=== PATIENT | male | born 1995 | race Caucasian/White ===

== ENCOUNTER 2025-01-25 16:47 | Emergency (ER) | payer SELFPAY ==
--- NOTE | 2025-01-25 16:54 | ED_ITS ---
<Statement entered by Karen Lomeli DO - 01/26/25 21:18> I was consulted by the HANNA, and we discussed the complexity of problems being addressed. I approve the treatment and management plan for this patient's care in the emergency department, thus performing a substantial portion of the medical decision making. Karen Lomeli DO Discharge Plan Disposition Patient Disposition: Left Against Medical Advice Condition: Fair Referrals Follow up/Referrals: Provider,Referral, MD [Primary Care Provider, Medical] - See instructions Clinical Impressions Clinical Impression: Cannabinoid hyperemesis syndrome Print Language Print Language: [place] Discharge ED Provider: Karen Lomeli General Adult HPI General Chief complaint: Dizziness Stated complaint: dizziness,nausea Time Seen by Provider: 01/25/25 16:50 Mode of Arrival: Ambulatory Source of Information: Patient Limitations: No Limitations History of Present Illness HPI narrative: 30-year-old male presents to the emergency with nausea, lightheadedness, diaphoresis, and dry heaves, that started around 2 hours ago, when the patient was going to use the bathroom , patient [place] any fever chills chest pain shortness of breath denies overt abdominal pain, denies constipation diarrhea melena hematochezia hematemesis, hemoptysis, no urinary type symptomatology, patient is current everyday smoker (vapes), notes occasional alcohol use, denies any other illicit drug use with the exception of marijuana, last use was several days ago, initial triage vitals are unremarkable. Patient has otherwise no other real relevant past medical history takes no other medications at home. Please note that above description of symptoms, in this electronic medical record under categorization of recalled from ER triage doctor by RN are reflective of an initial nursing assessment, however, is not reflective of my full history and physical exam that was personally taken and clarified. Consequentially, this preceding description of symptoms, which may include the patient's categorized chief complaint in the EMR, do not reflect my personal clinical impression, and the ultimate description of history of present illness and patient stated complaints should be deferred to this section of the note. Unless stated otherwise or congruent with this section of the note, additional signs, symptoms, or incongruence should be interpreted as inaccurate with my clinical impression. Onset (ago): hour(s) Related Data Allergies Allergy/AdvReac Type Severity Reaction Status Date / Time No Known Allergies Allergy Verified 01/25/25 17:30 [facility] Disclaimer: The information contained in this section may have been updated after the patient was seen, as this information can be updated by other users. Social History (Updated 01/25/25 @ 18:47 by MARGARET Miles) Smoking Status: Current every day smoker alcohol intake: current current occupational status: other Travel in the last 8 weeks?: None Have you lived/traveled outside US in past 30 days?: No Contact w/someone who lives/traveled outside US past 30 days?: No Exposure to someone with infectious disease in past 14 days?: No Do you have a fever (greater than 100.4 F or 38 C)?: No Have you tested positive for COVID-19?: No Exposed to someone with COVID-19 in past 14 days?: No Do you have a sore throat?: No Do you have a cough?: No Do you have any weakness?: No Do you have any diarrhea?: No Are you experiencing any unusual bleeding?: No Do you have any muscle aches/pain?: No Do you have any abdominal pain?: No Are you experiencing loss of taste or smell?: No ROS Obtained: Yes All systems reviewed & no additional complaints except as documented Physical Exam General General appearance: alert and in no apparent distress Comment: Pale diaphoretic appearing male with active dry heaves Head Head exam: atraumatic and normocephalic Eye Eye exam: Present PERRL and EOMI ENT ENT exam: Present mucous membranes moist Neck Neck exam: Present normal inspection Chest Chest inspection: Present normal inspection and symmetric chest wall rise Respiratory Respiratory exam: Present normal lung sounds bilaterally; Absent respiratory distress, wheezes or stridor Cardiovascular Cardiovascular exam: Present regular rate and normal rhythm Abdominal Exam Abdominal exam: Present soft; Absent tenderness, guarding, rebound or rigidity Extremities Exam Extremities exam: Present normal inspection Neurological Exam Neurological exam: Present alert and oriented X3 Psychiatric Psychiatric exam: Present normal affect Skin Skin exam: Present warm and dry Medical Decision Making Medical Records Medical records reviewed: Yes I reviewed the patient's medical records. Screening: Per USPSTF and CDC recommendations, given the prevalence of disease in our region, it is our hospital?s policy to screen for HIV and viral Hepatitis for all patients aged 18 and over and those with ongoing risk factors. Otilio Inquiry Pt receiving controlled substance: No Otilio was queried for this patient: No Vital Signs: 01/25/25 17:18 01/25/25 18:00 Temperature 97.6 F Temperature Source Oral Pulse Rate 81 Pulse Rate [Right Radial] 79 Respiratory Rate 15 15 Blood Pressure 132/101 H Blood Pressure [Right Arm] 127/79 Blood Pressure Mean 109 Blood Pressure Mean [Right Arm] 95 Blood Pressure Source [Right Arm] Automatic Cuff Blood Pressure Position [Right Arm] Sitting 02 Sat by Pulse Oximetry 100 94 L Oxygen Delivery Method Room Air Lab Data Lab results reviewed: Yes I reviewed the patient's lab results. Lab Results 01/25/25 17:06: Urine Color Yellow, Urine Appearance Clear, Urine pH 6.0, Ur Specific [place] 1.025, Urine Protein Trace, Urine Glucose (UA) Trace, Urine Ketones 3+, Urine Blood Negative, Urine Nitrate Negative, Urine Bilirubin Negative, Urine Urobilinogen 1.0, Ur Leukocyte Esterase Negative, Urine RBC Occasional, Urine WBC 3-5, Ur Squamous Epith Cells 5-10, Urine Bacteria 2+, Urine Mucus 1+ 01/25/25 17:08: Urine Opiates Screen Negative, Urine Methadone Screen Negative, Ur Barbituates Screen Negative, Ur Phencyclidine Scrn Negative, Ur Amphetamines Screen Negative, U Benzodiazepines Scrn Negative, Urine Cocaine Screen Negative, U Marijuana (THC) Screen Positive H 01/25/25 17:16: WBC 9.9, RBC 4.74, Hgb 14.0 L, Hct 41.7 L, MCV 88.0, MCH 29.5, MCHC 33.6, RDW 12.3, Plt Count 219, MPV 11.6 H, Neut % (Auto) 82.5 H, Lymph % (Auto) 12.4, [place] % (Auto) 4.2, Eos % (Auto) 0.2, Baso % (Auto) 0.3, Neut # (Auto) 8.2 H, Lymph # (Auto) 1.2, [place] # (Auto) 0.4, Eos # (Auto) 0.0, Baso # (Auto) 0.0, Sodium 137, Potassium 4.1, Chloride 98, Carbon Dioxide 19 L, Anion Gap 24.1 H, BUN 15, Creatinine 0.90, Estimated Creat Clear 101, Estimated GFR 100, Est GFR ( Amer) 121, Glucose 158 H, Calcium 10.0, Magnesium 1.6, T otal Bilirubin 2.9 H, AST 28, ALT 26, Alkaline Phosphatase 63, Troponin I < 0.01, NT-Pro-B Natriuret Pep < 20.0, Total Protein 8.4 H, Albumin 5.3 H, Globulin 3.1, Albumin/Globulin Ratio 1.7, Lipase 54, Plasma/Serum Alcohol < 10 01/25/25 17:16 01/25/25 17:16 Orders (Tests/Meds): ED MEDICATIONS Discontinued Medications Generic Name Dose Route Start Last Admin Trade Name Freq PRN Reason Stop Dose Admin Droperidol 1.25 mg 01/25/25 17:33 01/25/25 17:49 Droperidol 5mg/2ml Vial IV 01/25/25 17:34 1.25 mg ONCE ONE Administration Lactated Ringer's 1,000 mls @ 999 mls/hr 01/25/25 16:59 01/25/25 17:31 Lactated Ringer's 1000 Ml Bag IV 01/25/25 17:59 999 mls/hr .Q1H1M ONE Administration ORDERS Category Date Time Status Complete Blood Count Auto Diff Stat Lab 01/25/25 17:16 Completed Comprehensive Metabolic Panel Stat Lab 01/25/25 17:16 Completed Drug Screen,Urine Stat Lab 01/25/25 17:08 Completed Ethanol [Ethyl Alcohol] Stat Lab 01/25/25 17:16 Completed Lipase Stat Lab 01/25/25 17:16 Completed Magnesium Stat Lab 01/25/25 17:16 Completed NT Pro Brain Natriuretic Pep. Stat Lab 01/25/25 17:16 Completed Troponin I Q3H Lab 01/25/25 20:00 Ordered Troponin I Q3H Lab 01/25/25 23:00 Ordered Troponin I Stat Lab 01/25/25 17:16 Completed Urinalysis and Microscopic Stat Lab 01/25/25 17:06 Completed Urine Culture Stat Micro 01/25/25 17:06 Received EKG Request [ECG Request] Stat Y 01/25/25 16:58 Ordered Medical Decision Narrative: 30-year-old male presents the emergency department with nausea lightheadedness, for 2 hours, differential diagnose include but not limited to, cannabinoid hyperemesis syndrome, other toxicity, cardiac arrhythmia, electrolyte disturbance, gastritis, ileitis, pancreatitis, colitis among others. I discussed this patient case with the attending physician Obtain EKG, CBC CMP UDS, ethyl alcohol level, lipase level magnesium level proBNP troponin urinalysis and will give 1 L LR IV. UA is notable for 3+ ketonuria, negative nitrites negative leukocyte esterase. Will give 1.25 IV droperidol for nausea and vomiting UDS is positive for THC otherwise negative CBC unremarkable CMP is notable for a elevated anion gap at 24.1, hyperbilirubinemia 2.9, troponin within normal limits, lipase in normal limits, ethyl alcohol level within normal limits. Reexamination of the patient's at approximately 6:40 PM, patient states his nausea and vomiting has improved, patient states that he would like to leave, patient's full workup has not yet resulted, and would like to watch patient after droperidol administration approximately 2 hours, patient received droperidol at 1750, still in the 2-hour manolo, patient is GCS of 15, patient's family member/significant other is at the bedside, both voiced understanding and agreement with the current plan to leave AGAINST MEDICAL ADVICE after full testing/observation was completed. Patient voiced understanding and acknowledged all risk of leaving AGAINST MEDICAL ADVICE until medical workup/observation period was completed after medication. Critical Care Critical Care Time Critical Care Time: No
--- OUTSIDE RECORDS SUMMARY | 2025-01-25 16:59 | XMS_ITS | Clinical Summary ---
Author Organization [facility] Address [address] [place] [address] Care Team Providers Care Motorcycle Riding Instructor Name Role Phone Brittni Cuevas M.D. Primary Care Provider [phone] Source Comments [facility] is fully rolled out with thefollowing exceptions:[facility] Medications methylphenidate (CONCERTA) 54 MG extended release tablet Take 1 Tab by mouth. Once daily Active cloNIDine (CATAPRES) 0.1 MG tablet Take 1 Tab by mouth. Once daily at bedtime Active atomoxetine (STRATTERA) 40 MG capsule Take by mouth. 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 Vitreous hemorrhage 09/25/2010 Family History Medical History Relation Name Comments Amblyopia Neg Hx Blindness Neg Hx Cataracts/Danilo.Childhood Neg Hx Eye Muscle Surgery Neg Hx Glaucoma/Danilo.Childhood Neg Hx Nystagmus Neg Hx Ptosis Neg Hx Retinal Degeneration Neg Hx Strabismus Neg Hx Social History Tobacco Use Types Packs/Day Years Used Date Smoking Tobacco: Never Assessed Sex and Gender Information Value Date Recorded Sex Assigned at Not on file Legal Sex Male 5:35 AM EST Gender Identity Not on file Sexual Orientation Not on file Plan of Treatment Health Maintenance Due Date Last Done Comments MMR IMMUNIZATION (1 of 1 - S tandard series) 01/08/1997 DTAP/Tdap/Td IMMUNIZATION (1 - Tdap) 01/08/2003 VARICELLA IMMUNIZATION (1 of 2 - 13+ 2-dose series) 01/08/2009 HEPATITIS B IMMUNIZATION (1 of 3 - 19+ 3-dose series) 01/08/2015 HPV IMMUNIZATION (1 - 3-dose SCDM series) 01/08/2023 COVID-19 Vaccine (1 - 2023-2 5 season) 2024 AMB SEASONAL FLU VACCINE (#1) 04/03/2025 HIB IMMUNIZATION Aged Out No longer e ligible based on patient's age to complete this topic IPV IMMUNIZATION Aged Out No longer e ligible based on patient's age to complete this topic MCV4 IMMUNIZATION Aged Out No longer eligible based on patient's age to complete this topic MENINGOCOCCAL B VACCINE Aged Out No l onger eligible based on patient's age to complete this topic PNEUMOCOCCAL IMMUNIZATION Aged Out No longer eligible based on patient's age to complete this topic Respiratory Syncytial Virus (RSV) <20mo Aged Out No longer eligible b ased on patient's age to complete this topic Insurance Care Teams Motorcycle Riding Instructor Relationship Specialty Start Date End Date Brittni Cuevas M.D. PCP - General External Medicine 09/25/10
--- OUTSIDE RECORDS SUMMARY | 2025-01-25 16:59 | XMS_ITS | Clinical Summary ---
Author Organization [facility] [place] [address] Phone Care Team Providers Care Bioinformatics Computer Scientist Name Role Phone Unavailable Primary Care Provider Unavailabl e Allergies No known active allergies Medications No known medications Active Problems Problem Noted Date Diagnosed Date Irritability and anger 12/20/2011 Behavioral disorder 12/20/2011 ADHD (attention deficit hyperactivity disorder) 12/20/2011 Medical History Medical History Date Comments ADHD (attention deficit hyperactivity disorder) Family History Medical History Relation Name Comments Diabetes Brother 1 Diabetes Father Heart Disease Father High Blood Pressure Father Relation Name Status Comments Brother 1 Alive Brother 2 Cornelius Alive Father Maternal Grandfather Maternal Grandmother Alive Mother Alive Paternal Grandfather Paternal Grandmother Social History Tobacco Use Types Packs/Day Years Used Date Smoking Tobacco: Never Smokeless Tobacco: Never Alcohol Use Standard Drinks/Week Comments No 0 (1 standard drink = 0.6 oz pur e alcohol) Sexually Active Control Partners Comments Never Sex and Gender Information Value Date Recorded Sex Assigned at Not on file Legal Sex Male 4:30 AM EDT Gender Identity Not on file Sexual Orientation Not on file Obstetrics History Last Filed Vital Signs Vital Sign Reading Time Taken Comments Blood Pressure 112/74 12/20/2011 1:06 PM EDT Pulse 69 12/20/2011 1:06 PM EDT Temperature 36.9 C (98.5 F) 12/20/2011 1:06 PM EDT Respiratory Rate - - Oxygen Saturation 100% 12/20/2011 1:06 PM EDT Inhaled Oxygen Concentration - - Weight 59.1 kg (130 lb 6.4 oz) 12/20/2011 1:06 P M EDT Height 163.2 cm (5' 4.25 ) 12/20/2011 1:06 PM ED T Body Mass Index 22.21 12/20/2011 1:06 PM EDT Plan of Treatment Health Maintenance Due Date Last Done Comments Annual Wellness Exam 01/08/1999 DTaP/TDaP/Td (1 - Tdap) 01/08/2015 Hepatitis B Vaccine (1 of 3 - 19+ 3-dose series) 01/08/2015 COVID-19 Vaccine (2023-2 5 season) 2024 Influenza Vaccine (#1) 2025 Meningococcal B Vaccine Aged Out No l onger eligible based on patient's age to complete this topic Pneumococcal Vaccine 0-49 Aged Out No longer eligible based on patient's age to complete this topic
[2025-01-25 17:16] LABS: Microscopic, Urine URINE MICROSCOPIC (MICROSCOPIC)
--- NOTE | 2025-01-25 17:17 | ECG_ITS ---
APPROVED REPORT Exam: Resting ECG HR:62 bpm ECG Measurements Heart Rate 62 AXES MS 139 P 57 QRSd 138 QRS 90 QT 406 T 80 QTc 411 Conclusion SINUS RHYTHM WITH OCCASIONAL SUPRAVENTRICULAR PREMATURE COMPLEXES INDETERMINATE AXIS RIGHT BUNDLE BRANCH BLOCK [120+ ms QRS DURATION, UPRIGHT V1, 40+ ms S IN I/aVL/V4/V5/V6] ABNORMAL ECG UNCONFIRMED REPORT Electronically signed by : PHILIP BISHOP, 01/25/2025 23:17:41
[2025-01-25 17:18] VITALS: BP 127/79; PULSE 79; RESP 15; TEMP 36.4; O2SAT 100; BMI 19.2
[2025-01-25 17:19] LABS: Bilirubin,Urine Negative (Negative); Color,Urine YELLOW (Yellow); Glucose,Urine (UA) TRACE (Negative); Ketones,Urine 3+ (Negative); Leukocyte Esterase,Urine Negative (Negative); PH,Urine 6.0 (5.0-8.5); Protein,Urine TRACE (Negative); Specific Gravity, Urine 1.025 (1.005-1.030); Urobilinogen,Urine 1.0 EU/dl (0.2)
[2025-01-25] MEDS: LACTATED RINGERS 1000ML 1,000 ML 999 ML IV (17:31)
[2025-01-25 17:36] LABS: Amphetamine/Metha Screen,Urine Negative ng/ml (<1000); Barbiturates Screen,Urine Negative ng/ml (<200)
[2025-01-25 17:37] LABS: Benzodiazepines Screen,Urine Negative ng/ml (<200)
[2025-01-25 17:39] LABS: Methadone Screen,Urine Negative ng/ml (<300)
[2025-01-25 17:40] LABS: Opiate Screen,Urine Negative ng/ml (<300); Phencyclidine Screen,Urine Negative ng/ml (<25)
[2025-01-25] MEDS: droPERidol 5MG/2ML VIAL 1.25 MG IV (17:49)
[2025-01-25 17:56] LABS: Alanine Aminotransferase 26 U/L (12-78); Albumin Level 5.3 g/dl (3.5-5.0); Albumin/Globulin Ratio 1.7 (1.1-1.8); Alkaline Phosphatase 63 U/L (38-126); Anion Gap 24.1 mEq/L (5-15); Aspartate Amino Transferase 28 U/L (17-59); Bilirubin,Total 2.9 mg/dl (0.2-1.3); Blood Urea Nitrogen 15 mg/dl (9-20); Calcium 10.0 mg/dl (8.4-10.2); Carbon Dioxide 19 mmol/L (22.0-30.0); Chloride 98 mmol/L (98-107); Creatinine Clearance Estimated 101 mL/min (50-200); Creatinine,Serum 0.90 mg/dl (0.66-1.25); Estimated Glomerular Filt Rate 100 ml/min (>60); GFR (African American) 121 ML/MIN (>60); Globulin 3.1 g/dL (1.3-3.2); Glucose 158 mg/dl (74-100); Hematocrit 41.7 % (42.0-52.0); Hemoglobin 14.0 g/dL (14.1-18.0); Immature Granulocytes % 0.4 %; Lipase 54 U/L (23-300); Magnesium 1.6 mg/dl (1.6-2.3); Mean Corpuscular HGB Conc 33.6 g/dL (31.8-35.4); Mean Corpuscular Hemoglobin 29.5 pg (27.0-31.2); Mean Corpuscular Volume 88.0 fl (80-94); Nucleated Red Blood Cells % 0 %; Platelet Count 219 K/mm3 (142-424); Potassium 4.1 mmoL/L (3.5-5.1); Red Blood Count 4.74 M/mm3 (4.60-6.20); Red Cell Distribution Width-SD 39.9 fL; Sodium 137 mmol/L (136-145); Total Protein,Serum 8.4 g/dl (6.3-8.2); White Blood Count 9.9 K/mm3 (4.8-10.8)
[2025-01-25 18:00] VITALS: BP 132/101; PULSE 81; RESP 15; O2SAT 94
[2025-01-25 18:00] LABS: Bacteria,Urine 2+ /lpf; Mucus,Urine 1+ /lpf; RBC,Urine Occasional #/hpf (0-3)
[2025-01-25 18:08] LABS: NT Pro Brain Natriuretic Pep. < 20.0 pg/mL (0-125)
[2025-01-25 18:13] LABS: Troponin I < 0.01 ng/ml (0.00-0.034)
[2025-01-25 18:45] VITALS: BP 142/90; PULSE 88; RESP 20; TEMP 36.6; O2SAT 98
--- NOTE | 2025-01-25 18:45 | PC.NURSE ---
pt refused to stay in ER for further, treatment, testing, and cardiac monitoring post droperidol. States I feeel so much better. I am not staying, I don't care what yall say. He is a&ox4. His friend is with him and driving. Educated to return to ER with any worsening symptoms or concerns. Ventura ROBLES and I both s/w pt regarding staying or leaving AMA. Pt choose to leave AMA and signed form.
== END 2025-01-25 18:46 | disposition left against medical advice (07) ==
PROVIDERS: Physician Assistant; Emergency Provider Student in an Organized Health Care Education/Training Program
DX: R42 Dizziness and giddiness (principal); R11.2 Nausea with vomiting, unspecified
CPT/HCPCS: 80053; 80307; 80320; 81001; 83690; 83735; 83880; 84484; 85025; 87086; 93005; 96361; 96374; 99284; J1790; J7120

== ENCOUNTER 2025-03-17 12:49 | Inpatient (IN) | payer SELFPAY ==
--- OUTSIDE RECORDS SUMMARY | 2025-01-27 16:17 | XMS_ITS | Encounter Summary ---
Author Organization [place] [address] Care Team Providers Care Deli Manager Name Role Phone Nonstaff, Referring Primary Care Provider Lucho tatum Reason for Visit * Reason Comments Emesis 3 days, think Im de hydrated, can't hold anything down Small amount of diarrhea Encounter Details Date Type Department Care Team (Late st Contact Info) Description 01/27/2025 4:17 PM EDT - 01/27/2025 8:25 PM EDT Emergency [facility] [address] [place] [address] Renetta Thornton MD [address] [place], [place] [id number] Nausea and vomiting, unspecified vomiting type (Primary Dx) Discharge Disposition: Home or Self Care Social History Tobacco Use Types Packs/Day Years Used Date Smoking Tobacco: Never Smokeless Tobacco: Never Alcohol Use Standard Drinks/Week Comments Yes 0 (1 standard drink = 0.6 oz pur e alcohol) social Sexually Active Control Partners Comments Never Sex and Gender Information Value Date Recorded Sex Assigned at Not on file Legal Sex Male 4:30 AM EDT Gender Identity Not on file Sexual Orientation Not on file documented as of this encounter Last Filed Vital Signs Vital Sign Reading Time Taken Comments Blood Pressure 150/95 01/27/2025 8:18 PM EDT Pulse 105 01/27/2025 8:18 PM EDT Temperature 37.4 C (99.3 F) 01/27/2025 5:20 PM EDT Respiratory Rate 18 01/27/2025 8:18 PM EDT Oxygen Saturation 96% 01/27/2025 8:18 PM EDT Inhaled Oxygen Concentration - - Weight 59 kg (130 lb) 01/27/2025 4:05 PM EDT Height 175.3 cm (5' 9 ) 01/27/2025 4:05 PM EDT Body Mass Index 19.2 01/27/2025 4:05 PM EDT documented in this encounter Functional Status * Suicide Severity Rating Answer Date of Assessment Author No Risk 01/27/2025 4:06 PM EDT Korina Mohr RN * [place] Suicide Severity Rating Scale (Q shift for moderate and high) Question Answer Date of Assessment Author 1. In the past month, have you wished you were or wished you could go to sleep and not wake up? 0 01/27/2025 4:06 PM EDT Kandace Lorenzo RN 2. In the past month, have you actually had any thoughts of killing yourself? (If no, skip to question 6) 0 01/27/2025 4:06 PM EDT Kandace Lorenzo RN 6. Have you ever done anything, started to do anything, or prepared to do anything to end your life? 0 01/27/2025 4:06 PM EDT Korina Stevens RN documented as of this encounter Discharge Instructions * Discharge Instructions* Nestor Luz, SALVADOR - 01/27/2025 7:44 PM EDT As discussed, the most important thing is for you to stay well hydrated while your body is recovering from this illness. Once you have been able to tolerate a clear liquid diet for 12-24 hours without vomiting, you may progress to a soft, bland diet. Drink fluids high in electrolytes like Pedialyte or Gatorade. Once you have been able to tolerate a soft, bland diet without vomiting or diarrhea for 12-24 hours, you may progress to a normal diet. You may take zofran as needed for nausea, but use caution, as this medication can cause sedation, and you should not drink alcohol, drive, or operate machinery while taking this medication. Please call your doctor's office in the morning to discuss your ER visit, and arrange a followup appointment. Call your doctor, or return to the emergency department, if you have worsening symptoms, particularly if you develop severe abdominal pain, persistent vomiting with inability to keep down fluids or medications, fever greater than 101??F which did not improve with Tylenol, or other concerning symptoms. documented in this encounter Medications at Time of Discharge ondansetron (ZOFRAN-ODT) 4 mg Oral Tablet, Rapid Dissolve Dissolve 1 Tablet by mouth every 6 hours as needed for Nausea for up to 30 days. 12 Tablet 01/27/2025 02/26/2025 documented as of this encounter Ordered Prescriptions Prescription Sig Dispense Quantity Refills Last Filled Start Date End Date ondansetron (ZOFRAN-ODT) 4 mg Oral Tablet, Rapid Dissolve Dissolve 1 Tablet by mouth every 6 hours as needed for Nausea for up to 30 days. 12 Tablet 01/27/2025 documented in this encounter Discharge Disposition Disposition Code Departure Means Destination Comment s Home or Self Skilled Nursing documented in this encounter ED Notes * Nestor Luz APRN - 01/27/2025 4:03 PM EDT CHIEF COMPLAINT Chief Complaint Patient presents with Emesis 3 days, think Im dehydrated, can't hold anything down Small amount of diarrhea Attending physician Dr Thornton, Renetta Rosas MD ED COURSE & MEDICAL DECISION MAKING Pedro Davis is a 30 y.o. male with a PMHx listed below presenting with nausea and vomiting. # Nausea and vomiting (Acute) - Patient reports 3 to 4-day history of symptoms on exam is tachycardic but otherwise afebrile hemodynamically stable with soft benign abdomen without obvious peritoneal findings. Intractable vomiting likely in the setting of reported marijuana use. He does have a nonspecific leukocytosis favored to be stress for response with no other offered infectious symptomology. Notable metabolic acidosis and anion gap acidosis which cleared well with IV fluids on repeat BMP. Lipase within normal limits. No significant hepatobiliary abnormality. No significant electrolyte derangement. No evidence of renal impairment. Symptoms well-controlled in the emergency department is tolerating p.o. stable for discharge with return precautions discussed for escalating symptoms. - History obtained by patient as well as chart review. - Pertinent Labs & Imaging studies reviewed. (See chart for ordered tests and details). ED COURSE - Consultants: None - Social Determinants of Health: Noncontributory - Care of patient discussed with nursing team and nursing documentation reviewed. Medications Administered Medications sodium chloride 0.9% syringe 5-10 mL (has no administration in time range) sodium chloride 0.9% IV line flush 50 mL (has no administration in time range) sodium chloride 0.9 % 1,000 mL IV bolus ( Intravenous Stopped 01/27/25 1749) haloperidol lactate (HALDOL) injection 5 mg (5 mg Intravenous Given 01/27/25 1640) sodium chloride 0.9 % 1,000 mL IV bolus ( Intravenous Stopped 01/27/25 1906) ondansetron (ZOFRAN-ODT) disintegrating tablet 8 mg (8 mg Oral Given 01/27/252014) Prescriptions Written ED Current Prescriptions Medication Dispense Auth. Provider ondansetron (ZOFRAN-ODT) 4 mg Oral Tablet, Rapid Dissolve 12 Tablet Nestor Luz, DATA PROCESSING OPERATOR Future Appointments No future appointments. FINAL IMPRESSION 1. Nausea and vomiting, unspecified vomiting type HPI Pedro Davis is a 30 y.o. male presenting with nausea and vomiting. Patient reports 3-day history of symptoms. Does report history of prior symptoms that he relates to his hyperemesis cannabis . He did smoke marijuana 3 to 4 days ago. Reports he initially tried a hot shower with some symptom improvement but states it only lasted for a very brief time. He has been trying [id number] antiem etics with little no improvement. He had 1 isolated episode of diarrhea but denies any recurrence of this. Reports mostly abdominal cramping with episodes of vomiting denies any pain at rest. Denies fevers or chills. Denies significant change in urinary output. Otherwise denies focal related complaints. REVIEW OF SYSTEMS A complete review of systems is negative except as noted in the HPI. PAST MEDICAL HISTORY Past Medical History: Diagnosis Date ADHD (attention deficit hyperactivity disorder) FAMILY HISTORY Family History Problem Relation Age of Onset Diabetes Father Heart Disease Father High Blood Pressure Father Diabetes Brother SOCIAL HISTORY Social History Socioeconomic History Marital status: Single Spouse name: None Number of children: None Years of education: None Highest education level: None Tobacco Use Smoking status: Never Smokeless tobacco: Never Vaping Use Vaping status: Every Day Substance and Sexual Activity Alcohol use: Yes Comment: social Drug use: Yes Types: Marijuana Comment: 4 or 5 days ago Sexual activity: Never SURGICAL HISTORY History reviewed. No pertinent surgical history. CURRENT MEDICATIONS No current facility-administered medications on file prior to encounter. No current outpatient medications on file prior to encounter. ALLERGIES No Known Allergies PHYSICAL EXAM VITAL SIGNS: ED Triage Vitals Temp -- Pulse 01/27/25 1605 114 Resp 01/27/25 1605 20 BP 01/27/25 1620 (!) 148/104 SpO2 01/27/25 1605 90 % Height 01/27/25 1605 5' 9 (1.753 m) Weight 01/27/25 1605 130 lb (59 kg) Constitutional: Appears nontoxic. No acute distress. HENT: Atraumatic. Normocephalic. Eyes: Conjunctiva normal. EOMI Neck: ROM normal, supple. Cardiovascular: Tachycardic rate and regular rhythm. Extremities appear warm and well perfused. Thorax & Lungs: Respiratory effort normal. Lungs CTAB Abdomen: Nondistended. Nontender. Musculoskeletal: No deformity or swelling. Moves all 4 extremities spontaneously with apparent equal strength. Skin: Warm and dry. Neurologic: Awake and alert. LABS/RADIOLOGY Reviewed (See Orders) Results for orders placed or performed during the hospital encounter of 01/27/25 CBC WITH DIFF Result Value Ref Range WBC 20.0 (H) 3.7 - 10.3 x10(3)/mcL RBC 5.40 4.60 - 6.10 x10(6)/mcL Hgb 16.4 13.7 - 17.5 g/dL Hct 46.5 40.0 - 51.0 % MCV 86.1 80.0 - 100.0 fL MCH 30.4 26.0 - 34.0 pg MCHC 35.3 30.7 - 35.5 g/dL RDW 12.0 <=14.9 % Platelet 291 155 - 369 x10(3)/mcL MPV 11.7 8.8 - 12.5 fL Neut Percent 92.8 % Imm Gran% 0.3 % Lymph Percent 3.1 % [place] Percent 3.7 % Eos Percent 0.0 % Baso Percent 0.1 % Neut # 18.6 (H) 1.6 - 6.1 x10(3)/mcL IMMGRAN# 0.1 0.0 - 0.1 x10(3)/mcL Lymph # 0.6 (L) 1.2 - 3.9 x10(3)/mcL Solano # 0.7 0.3 - 0.9 x10(3)/mcL Eos# 0.0 0.0 - 0.5 x10(3)/mcL Baso # 0.0 0.0 - 0.1 x10(3)/mcL COMPREHENSIVE METABOLIC PANEL Result Value Ref Range Sodium 137 136 - 145 mmol/L Potassium 3.7 3.5 - 5.0 mmol/L Chloride 92 (L) 98 - 107 mmol/L Total CO2 19 (L) 22 - 29 mmol/L Anion Gap 26 (H) 7 - 16 mmol/L Calcium 11.4 (H) 8.6 - 10.4 mg/dL Glucose Lvl 144 (H) 70 - 99 mg/dL BUN 25 (H) 6 - 20 mg/dL Creatinine 1.20 0.67 - 1.30 mg/dL Albumin 5.9 (H) 3.5 - 5.2 gm/dL Total Protein 9.3 (H) 6.4 - 8.3 gm/dL Bili Total 3.3 (H) 0.2 - 1.4 mg/dL ALT 19 <=41 U/L AST 19 <=40 U/L Alk Phos 77 40 - 129 U/L eGFR (CKD-EPIcr 2020) 84 >=60 mL/min/1.73 m2 LIPASE LEVEL Result Value Ref Range Lipase Lvl 14 13 - 60 U/L BASIC METABOLIC PANEL Result Value Ref Range Sodium 138 136 - 145 mmol/L Potassium 4.0 3.5 - 5.0 mmol/L Chloride 99 98 - 107 mmol/L Total CO2 22 22 - 29 mmol/L Anion Gap 17 (H) 7 - 16 mmol/L Calcium 8.9 8.6 - 10.4 mg/dL Glucose Lvl 93 70 - 99 mg/dL BUN 23 (H) 6 - 20 mg/dL Creatinine 1.11 0.67 - 1.30 mg/dL eGFR (CKD-EPIcr 2020) 92 >=60 mL/min/1.73 m2 No orders to display Abnormal Labs Reviewed CBC WITH DIFF - Abnormal; Notable for the following components: Result Value WBC 20.0 (*) Neut # 18.6 (*) Lymph # 0.6 (*) All other components within normal limits COMPREHENSIVE METABOLIC PANEL - Abnormal; Notable for the following components: Chloride 92 (*) Total CO2 19 (*) Anion Gap 26 (*) Calcium 11.4 (*) Glucose Lvl 144 (*) BUN 25 (*) Albumin 5.9 (*) Total Protein 9.3 (*) Bili Total 3.3 (*) All other components within normal limits BASIC METABOLIC PANEL - Abnormal; Notable for the following components: Anion Gap 17 (*) BUN 23 (*) All other components within normal limits EKG PROCEDURES/ULTRASOUND DISPOSITION Risks, benefits, and alternatives were discussed. At this time the patient has been deemed safe fordischarge. My customary discharge instructions including strict return precautions for worsening ornew symptoms have been communicated. CRITICAL CARE Condition at Discharge/Transfer from Department/Shift Turnover: Improved In cases where narcotics are prescribed, AFUA report was obtained, reviewed, and made part of record. After examining available information, and risks of prescribing or dispensing controlled substances was explained to the patient (including non-treatment or other treatment), it is considered medically appropriate to administer narcotics as prescribed. This note was dictated using voice-recognition software, which occasionally construes inadvertent typographic errors. Nestor Luz APRN 01/27/252026 Cosigned by Renetta Thornton MD at 01/27/2025 11:57 PM EDT Associated attestation - Renetta Thornton MD - 01/27/2025 11:57 PM EDT I have reviewed the chief complaint, history of the present illness, review of systems as well as the past medical, social, and family history sections for this patient. I participated in the care ofthis patient with the PA/GOVERNMENT CLERK. We discussed the management plan and testing results for this patient and I performed a substantiative portion of the medical decision making. No orders to display This chart was completed using voice recognition technology and may contain unintended errors documented in this encounter Plan of Treatment Not on file documented as of this encounter Procedures Procedure Name Priority Date/Time Associated Diagnosis Comments BASIC METABOLIC PANEL STAT 01/27/2025 6:59 PM EDT CBC WITH DIFF STAT 01/27/2025 4:41 PM EDT LIPASE LEVEL STAT 01/27/2025 4:41 PM EDT COMPREHENSIVE METABOLIC PANEL STAT 01/27/2025 4:41 PM EDT SALINE LOCK IV STAT 01/27/2025 4:24 PM EDT documented in this encounter Results * (ABNORMAL) BASIC METABOLIC PANEL (01/27/2025 6:59 PM EDT) Sodium 138 136 - 145 mmol/L 01/27/2025 7:36 PM EDT [facility] Potassium 4.0 3.5 - 5.0 mmol/L 01/27/2025 7:36 PM EDT [facility] Chloride 99 98 - 107 mmol/L 01/27/2025 7:36 PM EDT [facility] Total CO2 22 22 - 29 mmol/L 01/27/2025 7:36 PM EDT [facility] Anion Gap 17(H) 7 - 16 mmol/L 01/27/2025 7:36 PM EDT [facility] Calcium 8.9 8.6 - 10.4 mg/dL 01/27/2025 7:36 PM EDT [facility] Glucose Lvl 93 70 - 99 mg/dL 01/27/2025 7:36 PM EDT [facility] BUN 23(H) 6 - 20 mg/dL 01/27/2025 7:36 PM EDT [facility] Creatinine 1.11 0.67 - 1.30 mg/dL 01/27/2025 7:36 PM EDT [facility] eGFR (CKD-EPIcr 2020) 92 >=60 mL/min/1.7 3 m2 01/27/2025 7:36 PM EDT [facility] Comment:Estimated GFR was ca lculated using the CKD-EPIcr (2020) equation refit without race. The equation is recommended by the National Kidney Foundation - [place] [employer] of Nephrology Task Force. Blood VENOUS BLOOD / Unknown Venipuncture / Unknown 01/27/2025 6:59 PM EDT 01/27/2025 7:03 PM EDT Nestor Luz [facility] CHEMISTRY ORDERABLES Fin al Result Performing Organization Address [facility] de Phone Number [facility] [address] [place] [address] * LIPASE LEVEL (01/27/2025 4:41 PM EDT) Lipase Lvl 14 13 - 60 U/L 01/27/2025 5:09 PM EDT [facility] Blood VENOUS BLOOD / Unknown Venipuncture / Unknown 01/27/2025 4:41 PM EDT 01/27/2025 4:48 PM EDT Nestor Luz APRN CHEMISTRY ORDERABLES Fin al Result Performing Organization Address [facility] de Phone Number [facility] [address] [place] [address] * (ABNORMAL) COMPREHENSIVE METABOLIC PANEL (01/27/2025 4:41 PM EDT) Sodium 137 136 - 145 mmol/L 01/27/2025 5:17 PM EDT [facility] Potassium 3.7 3.5 - 5.0 mmol/L 01/27/2025 5:17 PM EDT [facility] Chloride 92(L) 98 - 107 mmol/L 01/27/2025 5:17 PM [facility] Total CO2 19(L) 22 - 29 mmol/L 01/27/2025 5:17 PM [facility] Anion Gap 26(H) 7 - 16 mmol/L 01/27/2025 5:17 PM [facility] Calcium 11.4(H) 8.6 - 10.4 mg/dL 01/27/2025 5:17 PM [facility] Glucose Lvl 144(H) 70 - 99 mg/dL 01/27/2025 5:17 PM [facility] BUN 25(H) 6 - 20 mg/dL 01/27/2025 5:17 PM [facility] Creatinine 1.20 0.67 - 1.30 mg/dL 01/27/2025 5:17 PM [facility] Albumin 5.9(H) 3.5 - 5.2 gm/dL 01/27/2025 5:17 PM [facility] Total Protein 9.3(H) 6.4 - 8.3 gm/dL 01/27/2025 5:17 PM [facility] Bili Total 3.3(H) 0.2 - 1.4 mg/dL 01/27/2025 5:17 PM [facility] ALT 19 <=41 U/L 01/27/2025 5:17 PM [facility] AST 19 <=40 U/L 01/27/2025 5:17 PM [facility] Alk Phos 77 40 - 129 U/L 01/27/2025 5:17 PM [facility] eGFR (CKD-EPIcr 2020) 84 >=60 mL/min/1.7 3 m2 01/27/2025 5:17 PM [facility] Comment:Estimated GFR was ca lculated using the CKD-EPIcr (2020) equation refit without race. The equation is recommended by the National Kidney Foundation - [place] [employer] of Nephrology Task Force. Blood VENOUS BLOOD / Unknown Venipuncture / Unknown 01/27/2025 4:41 PM EDT 01/27/2025 4:48 PM EDT Nestor T Eilerman DATA PROCESSING OPERATOR CHEMISTRY ORDERABLES Fin al Result [facility] [address] [place] [address] * (ABNORMAL) CBC WITH DIFF (01/27/2025 4:41 PM EDT) WBC 20.0(H) 3.7 - 10.3 x10(3)/mcL 01/27/2025 4:52 PM EDT [facility] RBC 5.40 4.60 - 6.10 x10(6)/mcL 01/27/2025 4:52 PM EDT [facility] Hgb 16.4 13.7 - 17.5 g/dL 01/27/2025 4:52 PM EDT [facility] Hct 46.5 40.0 - 51.0 % 01/27/2025 4:52 PM EDT [facility] MCV 86.1 80.0 - 100.0 fL 01/27/2025 4:52 PM EDT [facility] MCH 30.4 26.0 - 34.0 pg 01/27/2025 4:52 PM EDT [facility] MCHC 35.3 30.7 - 35.5 g/dL 01/27/2025 4:52 PM EDT [facility] RDW 12.0 <=14.9 % 01/27/2025 4:52 PM EDT [facility] Platelet 291 155 - 369 x10(3)/mcL 01/27/2025 4:52 PM EDT [facility] MPV 11.7 8.8 - 12.5 fL 01/27/2025 4:52 PM EDT [facility] Neut Percent 92.8 % 01/27/2025 4:52 PM EDT [facility] Comment:Neutrophils equals s egs plus bands Imm Gran% 0.3 % 01/27/2025 4:52 PM EDT [facility] Comment:Automated count of m etamyelocytes, myelocytes and promyelocytes. Lymph Percent 3.1 % 01/27/2025 4:52 PM EDT [facility] Solano Percent 3.7 % 01/27/2025 4:52 PM EDT [facility] Eos Percent 0.0 % 01/27/2025 4:52 PM EDT [facility] Baso Percent 0.1 % 01/27/2025 4:52 PM EDT [facility] Neut # 18.6(H) 1.6 - 6.1 x10(3)/[facility] 01/27/2025 4:52 PM EDT [facility] Comment:Neutrophils equals s egs plus bands IMMGRAN# 0.1 0.0 - 0.1 x10(3)/[facility] 01/27/2025 4:52 PM EDT [facility] Comment:Automated count of m etamyelocytes, myelocytes and promyelocytes. An absolute IG <0.1 is reported as 0.0. Lymph # 0.6(L) 1.2 - 3.9 x10(3)/[facility] 01/27/2025 4:52 PM EDT [facility] Solano # 0.7 0.3 - 0.9 x10(3)/[facility] 01/27/2025 4:52 PM EDT [facility] Eos# 0.0 0.0 - 0.5 x10(3)/[facility] 01/27/2025 4:52 PM EDT [facility] Baso # 0.0 0.0 - 0.1 x10(3)/[facility] 01/27/2025 4:52 PM EDT [facility] Blood VENOUS BLOOD / Unknown Venipuncture / Unknown 01/27/2025 4:41 PM EDT 01/27/2025 4:48 PM EDT us Nestor Luz DATA PROCESSING OPERATOR HEMATOLOGY ORDERABLES Fi nal Result [facility] [address] [place] [address] documented in this encounter Visit Diagnoses Diagnosis Nausea and vomiting, unspecified vomiting type- Primary documented in this encounter Administered Medications Inactive Administered Medications - up to 1 most recent administrations Medication Order MAR Action Action Date Dose Rate Site haloperidol lactate (HALDOL) injection 5 mg 5 mg, Intravenous, ONCE, 1 dose, On Sat01/27/25 at 1630 Given 01/27/2025 4:40 PM EDT 5 mg ondansetron (ZOFRAN-ODT) disintegrating tablet 8 mg 8 mg, Oral, ONCE, 1 dose, On Sat01/27/25 at 2015, Dissolve in mouth Given 01/27/2025 8:15 PM EDT 8 mg sodium chloride 0.9 % 1,000 mL IV bolus Intravenous, ONCE, 1 dose, On Sat01/27/25 at 1730, at 983.6 mL/hr IV Started 01/27/2025 5:51 PM EDT 983.6 mL/hr sodium chloride 0.9 % 1,000 mL IV bolus Intravenous, ONCE, 1 dose, On Sat01/27/25 at 1630, at 983.6 mL/hr IV Started 01/27/2025 4:46 PM EDT 983.6 mL/hr sodium chloride 0.9% IV line flush 50 mL 50 mL, Intravenous, at 999 mL/hr, PRN, Starting on Sat01/27/25 at 1624, Until Vy 01/28/25 at 0025, Line Care, Flush with 50 mL after IVPB to insure complete administration of the dose. May use the saline infusion to back flush IVPB tubing as needed., Use this order to document priming and flushing IV line after medication administration. sodium chloride 0.9% syringe 5-10 mL 5-10 mL, Intravenous, PRN, Starting on Sat01/27/25 at 1624, Until Vy 01/28/25 at 0025, Line Care, Flush with 5 mL saline pre/post IVP, and 5 mL prior to IVPB or blood product administration. Protocol for PERIPHERAL IV saline lock maintenance, flush with 3-5 mL saline syringe every 8 hours., Flush peripheral lines every 12 hours, central lines every 8 hours, and after IV medication documented in this encounter Active and Recently Administered Medications Times are shown in EDT. Scheduled Medication Order 01/25/2025 01/26/2025 01/27/2025 haloperidol lactate (HALDOL) injection 5 mg (COMPLETED) 5 mg, Intravenous, ONCE, 1 dose, On Sat01/27/25 at 1630 1640 (Given - Provid er: Griffin Paredes RN) ondansetron (ZOFRAN-ODT) disintegrating tablet 8 mg (COMPLETED) 8 mg, Oral, ONCE, 1 dose, On Sat01/27/25 at 2015, Dissolve in mouth 2014 (Given - Provid er: Shonda Stauffer RN) sodium chloride 0.9 % 1,000 mL IV bolus (COMPLETED) Intravenous, ONCE, 1 dose, On Sat01/27/25 at 1730, at 983.6 mL/hr 1751 (IV Started - P rovider: Griffin Paredes RN)1906 (Stopped - Provider: Griffin Paredes RN) sodium chloride 0.9 % 1,000 mL IV bolus (COMPLETED) Intravenous, ONCE, 1 dose, On Sat01/27/25 at 1630, at 983.6 mL/hr 1646 (IV Started - P rovider: Griffin Paredes RN)1749 (Stopped - Provider: Griffin Paredes RN) PRN Medication Order 01/25/2025 01/26/2025 01/27/2025 sodium chloride 0.9% IV line flush 50 mL 50 mL, Intravenous, at 999 mL/hr, PRN, Starting on Sat01/27/25 at 1624, Until Vy 01/28/25 at 0025, Line Care, Flush with 50 mL after IVPB to insure complete administration of the dose. May use the saline infusion to back flush IVPB tubing as needed., Use this order to document priming and flushing IV line after medication administration. sodium chloride 0.9% syringe 5-10 mL 5-10 mL, Intravenous, PRN, Starting on Sat01/27/25 at 1624, Until Vy 01/28/25 at 0025, Line Care, Flush with 5 mL saline pre/post IVP, and 5 mL prior to IVPB or blood product administration. Protocol for PERIPHERAL IV saline lock maintenance, flush with 3-5 mL saline syringe every 8 hours., Flush peripheral lines every 12 hours, central lines every 8 hours, and after IV medication documented in this encounter Orders Medications Ordered That Jay ht Not Have Been Administered Count Last Ordered Date First Ordered Date sodium chloride 0.9% IV line flush 50 mL 1 01/27/2025 sodium chloride 0.9% syringe 5-10 mL 01/02 IV Count Last Ordered Date First Orde red Date SALINE LOCK IV 1 01/27/2025 documented in this encounter Care Teams Deli Manager Relationship Specialty Start Date End Date Nonstaff, Referring PCP - General 01/27/25 documented as of this encounter
--- OUTSIDE RECORDS SUMMARY | 2025-01-29 16:01 | XMS_ITS | Encounter Summary ---
Author Organization [place] [address] Care Team Providers Care Bill Recapitulation Clerk Name Role Phone Nonstaff, Referring Primary Care Provider Lucho tatum Reason for Visit * Reason Comments Emesis Reports vomiting for the last 5 days, seen here 2 days ago but not better. Had fever to 100.3 last night, has hiccups. Cpta-none today Encounter Details Date Type Department Care Team (Late st Contact Info) Description 01/29/2025 4:01 PM EDT - 01/29/2025 7:25 PM EDT [facility] [address] [facility] [place] [address] Justin Barragan MD [address] [place] [address] Cannabinoid hyperemesis syndrome (Primary Dx) Discharge Disposition: Home or Self [...] Sign Reading Time Taken Comments Blood Pressure 141/87 01/29/2025 7:00 PM EDT Pulse 104 01/29/2025 3:39 PM EDT Temperature 36.7 C (98 F) 01/29/2025 4:06 PM EDT Respiratory Rate 18 01/29/2025 3:39 PM EDT Oxygen Saturation 98% 01/29/2025 7:00 PM EDT Inhaled Oxygen Concentration - - Weight 59 kg (130 lb) 01/29/2025 3:39 PM EDT Height 175.3 cm (5' 9 ) 01/29/2025 3:39 PM EDT Body Mass Index 19.2 01/29/2025 3:39 PM EDT documented in this encounter Functional Status * Suicide Severity Rating Answer Date of Assessment Author No Risk 01/29/2025 3:41 PM EDT Jada Patel RN * [place] Suicide Severity Rating Scale (Q shift for moderate and high) Question Answer Date of Assessment Author 1. In the past month, have y ou wished you were or wished you could go to sleep and not wake up? 0 01/29/2025 3:41 PM EDT Jada Atkins RN 2. In the past month, have y ou actually had any thoughts of killing yourself? (If no, skip to question 6) 0 01/29/2025 3:41 PM EDT Jada Patel RN 6. Have you ever done anythi ng, started to do anything, or prepared to do anything to end your life? 0 01/29/2025 3:41 PM EDT Jada Goodwin RN documented as of this encounter Discharge Instructions * Discharge Instructions* Wanda Liu APRN - 01/29/2025 6:50 PM EDT Do not smoke marijuana. If you have difficulty abstaining from marijuana use please contact [employer]. Follow-up with primary care. Stay well-hydrated Return to the emergency room for new or worsening symptoms. * Attachments The following attachments cannot be sent through Care Everywhere. * [facility] ED CARES NURSE DISCHARGE INSTRUCTIONS documented in this encounter Medications at Time of Discharge omeprazole (PRILOSEC) 20 mg Oral Capsule, Delayed Release(E.C.) Take 1 Capsule by mouth every morning (before breakfast). 30 Capsule 01/29/2025 baclofen (LIORESAL) 10 mg Oral Tablet Take 1 Tablet by mouth 3 times daily for 5 days. 15 Tablet 01/29/2025 02/03/2025 ondansetron (ZOFRAN-ODT) 4 mg Oral Tablet, Rapid Dissolve Dissolve 1 Tablet by mouth every 6 hours as needed for Nausea for up to 30 days. 12 Tablet 01/27/2025 02/26/2025 promethazine (PHENERGAN) 25 mg Oral Tablet Take 1 Tablet by mouth 3 times daily as needed for Nausea for up to 30 days. 10 Tablet 01/29/2025 02/28/2025 documented as of this encounter Ordered Prescriptions Prescription Sig Dispense Quantity Refills Last Filled Start Date End Date omeprazole (PRILOSEC) 20 mg Oral Capsule, Delayed Release(E.C.) Take 1 Capsule by mouth every morning (before breakfast). 30 Capsule 01/29/2025 baclofen (LIORESAL) 10 mg Oral Tablet Take 1 Tablet by mouth 3 times daily for 5 days. 15 Tablet 01/29/2025 promethazine (PHENERGAN) 25 mg Oral Tablet Take 1 Tablet by mouth 3 times daily as needed for Nausea for up to 30 days. 10 Tablet 01/29/2025 5 documented in this encounter Discharge Disposition Disposition Code Departure Means Destination Comment s Home or Self Custodial documented in this encounter ED Notes * Wanda Liu, SALVADOR - 01/29/2025 3:38 PM EDT CHIEF COMPLAINT Chief Complaint Patient presents with Emesis Reports vomiting for the last 5 days, seen here 2 days ago but not better. Had fever to 100.3 last night, has hiccups. Cpta-none today HPI Pedro Davis is a 30 y.o. male with a history of chronic marijuana use and behavioral disorder who presents to the emergency room with complaints of emesis. Patient was evaluated in the emergency room 2 days ago with the same complaint. Laboratory studies were obtained. Patient was treated with Haldol. Symptoms improved. Laboratory repeat studies improved. Patient reports since that time he has been able to abstain from marijuana use. His last use was 5 days ago. Does report repetitive vomiting even while taking Zofran. Denies any black or bloody emesis. No diarrhea or focal abdominal complaints. Patient denies any fever, cough, SOB, anorexia, or any other symptoms. History was obtained from the patient and medical record. Medical records outside the emergency room were reviewed REVIEW OF SYSTEMS See HPI for further details. Remainder of Review of systems is otherwise negative. PAST MEDICAL HISTORY Past Medical History: Diagnosis [...] reviewed. No pertinent surgical history. CURRENT MEDICATIONS Current Facility-Administered Medications: sodium chloride 0.9% IV line flush 50 mL, 50 mL, Intravenous, PRN, Mangus, Wanda R, BREWMASTER sodium chloride 0.9% syringe 5-10 mL, 5-10 mL, Intravenous, PRN, Mangus, Wanda R, BREWMASTER Current Outpatient Medications: ondansetron (ZOFRAN-ODT) 4 mg Oral Tablet, Rapid Dissolve, Dissolve 1 Tablet by mouth every 6 hoursas needed for Nausea for up to 30 days., Disp: 12 Tablet, Rfl: 0 baclofen (LIORESAL) 10 mg Oral Tablet, Take 1 Tablet by mouth 3 times daily for 5 days., Disp: 15 Tablet, Rfl: 0 omeprazole (PRILOSEC) 20 mg Oral Capsule, Delayed Release(E.C.), Take 1 Capsule by mouth every morning (before breakfast)., Disp: 30 Capsule, Rfl: 0 promethazine (PHENERGAN) 25 mg Oral Tablet, Take 1 Tablet by mouth 3 times daily as needed for Nausea for up to 30 days., Disp: 10 Tablet, Rfl: 0 ALLERGIES No Known Allergies PHYSICAL EXAM ED Triage Vitals Temp 01/29/25 1606 98 ??F (36.7 ??C) Pulse 01/29/25 1539 104 Resp 01/29/25 1539 18 BP 01/29/25 1606 (!) 140/80 SpO2 01/29/25 1539 99 % Height 01/29/25 1539 5' 9 (1.753 m) Weight 01/29/25 1539 130 lb (59 kg) refer to nursing notes for most recent vital signs Constitutional: Awake, Alert & oriented HENT: Normocephalic, Atraumatic, Bilateral external ears normal, Nose normal. Mucous membranes tacky. Eyes: Conjunctiva normal no discharge. Neck: Normal range of motion, Supple, No stridor. Cardiovascular: Tachycardic heart rate, Normal rhythm. Thorax & Lungs: Normal breath sounds, No respiratory distress, No chest tenderness. Abdomen: Soft, nontender, nondistended, no rebound or guarding Skin: Warm, Dry. Extremities: No edema Neurologic: No focal deficits Psych- euthymic LABS/RADIOLOGY/PROCEDURES No orders to display CT ABD PEL ED FAST W CONTRAST Final Result CT ABDOMEN AND PELVIS WITH CONTRAST (FAST), 01/29/2025 5:13 PM CLINICAL HISTORY: -vomiting. COMPARISON: None. PROCEDURE COMMENTS: Multi-detector CT scanning of the abdomen and pelvis with multiplanar reformatting per expedited protocol. Isovue 370 IV contrast given as recorded in EPIC. Dose 1 : CT DLP Total : 216.11 mGycm DLP Spiral Max : 211.67 mGycm Maximum CTDI Vol : 4.15 mGy FINDINGS: LOWER THORAX: Lung bases unremarkable. ABDOMEN AND PELVIS: The spleen, pancreas and adrenal glands are normal. The gallbladder is nondistended. The liver is normal. The portal veins and SMV are patent. The kidneys are normal size. There are no renal calculi or hydronephrosis. There is a round 10 mm circumscribed low-density lesion in the midpole of the right kidney which is attributed to a renal cyst. The bladder is normal.. The small and large bowel loops are normal caliber. There is no bowel wall thickening or distention. The terminal ileum is normal. The appendix is normal. The pelvic organs are normal. There is no free fluid in the abdomen or pelvis. The abdominal aorta is normal caliber. No acute osseous abnormality. IMPRESSION: No acute abnormality of the abdomen or pelvis. - Note: Radiology results need to be interpreted within a comprehensive clinical context. If you have questions about the radiology report, please contact the office of the ordering clinician. Labs Reviewed CBC WITH DIFF - Abnormal Result Value WBC 16.0 (*) RBC 5.27 Hgb 15.8 Hct 45.3 MCV 86.0 MCH 30.0 MCHC 34.9 RDW 12.1 Platelet 284 MPV 11.6 Neut Percent 75.5 Imm Gran% 0.3 Lymph Percent 12.7 [place] Percent 11.3 Eos Percent 0.1 Baso Percent 0.1 Neut # 12.1 (*) IMMGRAN# 0.1 Lymph # 2.0 [place] # 1.8 (*) Eos# 0.0 Baso # 0.0 COMPREHENSIVE METABOLIC PANEL - Abnormal Sodium 131 (*) Potassium 3.5 Chloride 85 (*) Total CO2 25 Anion Gap 21 (*) Calcium 10.9 (*) Glucose Lvl 115 (*) BUN 34 (*) Creatinine 1.47 (*) Albumin 5.7 (*) Total Protein 9.1 (*) Bili Total 3.3 (*) ALT 24 AST 42 (*) Alk Phos 70 eGFR (CKD-EPIcr 2020) 66 DRUG SCREEN RAPID PANEL, URINE - Abnormal Cannabinoid Rapid Presumptive Pos (*) Cocaine Rapid Absent Methamphetamine Rapid Absent Opiate Rapid Absent Amphetamine Rapid Absent Benzodiazepines Rapid Absent Tricyclic Rapid Absent Methadone Rapid Absent Barbiturate Rapid Absent Oxycodone Rapid Absent BUPRENORPHINE RAPID Absent Narrative: These drug classes have been qualitatively screened by immunoassay and are for medical purposes only. Results reported as presumptive positive have not been confirmed. If results don???t reflect the clinical picture, the prescribed medication, or the discussion with the patient, confirmation testing is recommended on the ORIGINAL urine. All urine specimens for drug testing are held for 7 days. If confirmation testing is desired, call the [facility]. Due to possible factors, such as, dilute/adulterated urine, concentration of drug/metabolite being below the cut-off, or antibody specificity of test reagent, a negative result does not rule out druguse. These results are only valid for urine specimens. Any contamination with vaginal pool/amniotic fluid could cause erroneous results. URINALYSIS REFLEX - Abnormal UA Color Yellow UA Appear Clear UA Glucose Negative UA Ketones 1+ (15 mg/dL) (*) UA Blood Trace-Intact (*) UA pH 6.0 UA Protein >=300 (*) UA Urobilinogen 1.0 UA Bili UA Nitrite Negative UA Leuk Est Negative UA Spec Grav >=1.030 UA WBC 1 UA RBC 2 UA Mucus 3+ UA Amorph 1+ UA Bacteria 1+ (*) UA Hyal Cast 15 (*) BASIC METABOLIC PANEL - Abnormal Sodium 134 (*) Potassium 3.6 Chloride 93 (*) Total CO2 26 Anion Gap 15 Calcium 8.3 (*) Glucose Lvl 100 (*) BUN 28 (*) Creatinine 1.28 eGFR (CKD-EPIcr 2020) 78 [id number]-CBC A/B - Normal CORONAVIRUS [id number] Not Detected Influenza A DNA Not Detected Influenza B DNA Not Detected LIPASE LEVEL - Normal Lipase Lvl 19 LACTIC ACID - Normal Lactic Acid 1.9 ALCOHOL MEDICAL - Normal Alcohol Medical <10 UA W/REFLEX TO CULTURE Narrative: The following orders were created for panel order UA W/REFLEX TO CULTURE. Procedure Abnormality Status --------- ------ URINALYSIS REFLEX[[id number]] Abnormal Final result EXTRA ARROYO URINE CX[[id number]] Final result Please view results for these tests on the individual orders. COURSE & MEDICAL DECISION MAKING Pertinent Labs & Imaging studies reviewed. (See chart for details) Medications sodium chloride 0.9% syringe 5-10 mL (has no administration in time range) sodium chloride 0.9% IV line flush 50 mL (has no administration in time range) sodium chloride 0.9 % 1,000 mL IV bolus ( Intravenous Stopped 01/29/25 173) diphenhydrAMINE (BENADRYL) injection 25 mg (25 mg Intravenous Given 01/29/25 163) droPERidol (INAPSINE) injection 1.25 mg (1.25 mg Intravenous Given 01/29/25 1634) iopamidoL (ISOVUE-370) 370 mg iodine /mL (76 %) injection (LOW) 100 mL (100 mL Intravenous Given 01/29/25 171) sodium chloride 0.9% syringe (20 mL Intravenous Given 01/29/25 171) haloperidol lactate (HALDOL) injection 5 mg (5 mg Intravenous Given 01/29/25 1651) sodium chloride 0.9 % 1,000 mL IV bolus ( Intravenous Stopped 01/29/25 182) famotidine (PEPCID) injection 20 mg (20 mg Intravenous Given 01/29/25 1730) Patient was seen in the emergency department and evaluated for the chief complaint as described in history of present illness. Complete history and physical were performed. Patient's presenting symptoms, physical exam, and diagnostic evaluation are consistent with cannabinoid hyperemesis syndrome. The patient is nontoxic andwith stable vital signs at this time. His exam findings and workup are above and are reassuring. Upon arrival to the emergency room the patient is actively vomiting at the bedside. The emesis is clear. There is no black or bloody emesis. Abdomen is soft and nonsurgical. This is a repeat emergency room visit. Laboratory workup pertinent for elevation in creatinine at 1.47 and a BUN of 34. Anion gap of 21. 2L of IV fluids provided. Repeat BMP with normal creatinine and reduced BUN. Anion gap cleared. Mild leukocytosis 16.0 but this is downtrending from 20 at last emergency room visit. Urine drug screen is positive for marijuana. CT abdomen and pelvis without acute findings. Workup and history are concerning for hyperemesis cannabis syndrome. Patient was instructed to stopsmoking marijuana. [employer] phone number and primary care phone number provided for assistance should the patient be unable to stop smoking marijuana on his own. Due to repetitive hiccups and persistent nausea and vomiting Phenergan, baclofen, and Prilosec wereprovided. Sedation precautions provided. The patient was given strict return precautions including worsening symptoms. He verbalized understanding of the return precautions and discharge directions. He is agreeable to the plan of care. ED Current Prescriptions Medication Dispense Auth. Provider promethazine (PHENERGAN) 25 mg Oral Tablet 10 Tablet Wanda Liu APRN baclofen (LIORESAL) 10 mg Oral Tablet 15 Tablet Wanda Liu APRN omeprazole (PRILOSEC) 20 mg Oral Capsule, Delayed Release(E.C.) 30 Capsule Wanda Liu APRN FINAL IMPRESSION 1. Cannabinoid hyperemesis syndrome Wanda Liu APRN 01/29/252024 Cosigned by Justin Barragan MD at 01/29/2025 8:34 PM EDT Associated attestation - Justin Barragan MD - 01/29/2025 8:34 PM EDT I personally approved the management of this patient, was available for consultation throughout their evaluation, and take responsibility for the patient management. I independently interpreted all data including EKG's, x-rays and laboratory studies. This chart was completed using voice recognition technology and may contain unintended errors documented in this encounter Plan of Treatment Not on file documented as of this encounter Procedures Procedure Name Priority Date/Time Associated Diagnosis Comments BASIC METABOLIC PANEL STAT 01/29/2025 6:[address] ABD PEL ED FAST W CONTRAST STAT 01/29/2025 5:13 PM EDT CBC WITH DIFF STAT 01/29/2025 4:31 PM EDT LIPASE LEVEL STAT 01/29/2025 4:31 PM EDT LACTIC ACID STAT 01/29/2025 4:31 PM EDT COMPREHENSIVE METABOLIC PANEL STAT 01/29/2025 4:31 PM EDT ALCOHOL MEDICAL STAT 01/29/2025 4:30 PM EDT URINALYSIS REFLEX STAT 01/29/2025 4:2 8 PM EDT DRUG SCREEN RAPID PANEL, URINE STAT 01/29/2025 4:28 PM EDT [id number] A/B Routine 01/29/2025 4:2 8 PM EDT UA W/REFLEX TO CULTURE STAT 4:28 PM EDT EXTRA ARROYO URINE CX STAT 01/29/2025 4 :28 PM EDT documented in this encounter Results * (ABNORMAL) BASIC METABOLIC PANEL (01/29/2025 6:25 PM EDT) Sodium 134(L) 136 - 145 mmol/L 01/29/2025 6:55 PM EDT [facility] Potassium 3.6 3.5 - 5.0 mmol/L 01/29/2025 6:55 PM EDT [facility] Chloride 93(L) 98 - 107 mmol/L 01/29/2025 6:55 PM EDT [facility] Total CO2 26 22 - 29 mmol/L 01/29/2025 6:55 PM EDT [facility] Anion Gap 15 7 - 16 mmol/L 01/29/2025 6:55 PM EDT [facility] Calcium 8.3(L) 8.6 - 10.4 mg/dL 01/29/2025 6:55 PM EDT [facility] Glucose Lvl 100(H) 70 - 99 mg/dL 01/29/2025 6:55 PM EDT [facility] BUN 28(H) 6 - 20 mg/dL 01/29/2025 6:55 PM T [facility] Creatinine 1.28 0.67 - 1.30 mg/dL 01/29/2025 6:55 PM EDT [facility] eGFR (CKD-EPIcr 2020) 78 >=60 mL/min/1.7 3 m2 01/29/2025 6:55 PM EDT [facility] Comment:Estimated GFR was ca lculated using the CKD-EPIcr (2020) equation refit without race. The equation is recommended by the National Kidney Foundation - [place] [employer] of Nephrology Task Force. Blood VENOUS BLOOD / Unknown Venipuncture / Unknown 01/29/2025 6:25 PM EDT 01/29/2025 6:27 PM EDT us Wanda Liu BREWMASTER CHEMISTRY ORDERABLES Final Result [facility] [address] [place], [place] [phone] * CT ABD PEL ED FAST W CONTRAST (01/29/2025 5:13 PM EDT) Anatomical Region Laterality Modality Abdomen, Pelvis Computed Tomogra phy 01/29/2025 5:1 3 PM EDT Impressions 01/29/2025 5:21 PM EDT No acute abnormality of the abdomen or pelvis. - Note: Radiology results need to be interpreted within a comprehensive clinical context. If you have questions about the radiology report, please contact the office of the ordering clinician. Narrative 01/29/2025 5:[address] ABDOMEN AND PELVIS WITH CONTRAST (FAST), 01/29/2025 5:13 PM CLINICAL HISTORY: -vomiting. COMPARISON: None. PROCEDURE COMMENTS: Multi-detector CT scanning of the abdomen and pelvis with multiplanar reformatting per expedited protocol. Isovue 370 IV contrast given as recorded in EPIC. Dose 1 : CT DLP Total : 216.11 mGycm DLP Spiral Max : 211.67 mGycm Maximum CTDI Vol : 4.15 mGy FINDINGS: LOWER THORAX: Lung bases unremarkable. ABDOMEN AND PELVIS: The spleen, pancreas and adrenal glands are normal. The gallbladder is nondistended. The liver is normal. The portal veins and SMV are patent. The kidneys are normal size. There are no renal calculi or hydronephrosis. There is a round 10 mm circumscribed low-density lesion in the midpole of the right kidney which is attributed to a renal cyst. The bladder is normal.. The small and large bowel loops are normal caliber. There is no bowel wall thickening or distention. The terminal ileum is normal. The appendix is normal. The pelvic organs are normal. There is no free fluid in the abdomen or pelvis. The abdominal aorta is normal caliber. No acute osseous abnormality. Procedure Note Gogo Nava MD - 01/29/2025 CT ABDOMEN AND PELVIS WITH CONTRAST (FAST), 01/29/2025 5:13 PM CLINICAL HISTORY: -vomiting. COMPARISON: None. PROCEDURE COMMENTS: Multi-detector CT scanning of the abdomen and pelviswith multiplanar reformatting per expedited protocol. Isovue 370 IV contrastgiven as recorded in EPIC. Dose 1 : CT DLP Total : 216.11 mGycm DLP Spiral Max : 211.67 mGycm Maximum CTDI Vol : 4.15 mGy FINDINGS: LOWER THORAX: Lung bases unremarkable. ABDOMEN AND PELVIS: The spleen, pancreas and adrenal glands are normal.The gallbladder is nondistended. The liver is normal. The portal veins and SMVare patent. The kidneys are normal size. There are no renal calculi or hydronephrosis.There is a round 10 mm circumscribed low-density lesion in the midpole of theright kidney which is attributed to a renal cyst. The bladder is normal.. The small and large bowel loops are normal caliber. There is no bowelwall thickening or distention. The terminal ileum is normal. The appendix isnormal. The pelvic organs are normal. There is no free fluid in the abdomen orpelvis. The abdominal aorta is normal caliber. No acute osseous abnormality. IMPRESSION: No acute abnormality of the abdomen or pelvis. - Note: Radiology results need to be interpreted within a comprehensiveclinical context. If you have questions about the radiology report, please contactthe office of the ordering clinician. Wanda Liu APRN IMG CT ORDERABLES Final Res ult * LACTIC ACID (01/29/2025 4:31 PM EDT) [facility] Lactic Acid 1.9 0.5 - 1.9 mmol/L 01/29/2025 4:48 PM EDT [facility] Blood VENOUS BLOOD / Unknown Venipuncture / Unknown 01/29/2025 4:31 PM EDT 01/29/2025 4:34 PM EDT Wanda Bowersus BREWMASTER CHEMISTRY ORDERABLES Final Result Performing Organization Address [facility] de Phone Number [facility] [address] [place] [address] * LIPASE LEVEL (01/29/2025 4:31 PM EDT) [facility] Lipase Lvl 19 13 - 60 U/L 01/29/2025 4:52 PM EDT [facility] Blood VENOUS BLOOD / Unknown Venipuncture / Unknown 01/29/2025 4:31 PM EDT 01/29/2025 4:34 PM EDT Wanda Bowersus BREWMASTER CHEMISTRY ORDERABLES Final Result Performing Organization Address [facility] Co de Phone Number [facility] [address] [place] [address] [phone] * (ABNORMAL) COMPREHENSIVE METABOLIC PANEL (01/29/2025 4:31 PM EDT) Sodium 131(L) 136 - 145 mmol/L 01/29/2025 4:59 PM [facility] Potassium 3.5 3.5 - 5.0 mmol/L 01/29/2025 4:59 PM [facility] Chloride 85(L) 98 - 107 mmol/L 01/29/2025 4:59 PM [facility] Total CO2 25 22 - 29 mmol/L 01/29/2025 4:59 PM [facility] Anion Gap 21(H) 7 - 16 mmol/L 01/29/2025 4:59 PM [facility] Calcium 10.9(H) 8.6 - 10.4 mg/dL 01/29/2025 4:59 PM [facility] Glucose Lvl 115(H) 70 - 99 mg/dL 01/29/2025 4:59 PM [facility] BUN 34(H) 6 - 20 mg/dL 01/29/2025 4:59 PM [facility] Creatinine 1.47(H) 0.67 - 1.30 mg/dL 01/29/2025 4:59 PM [facility] Albumin 5.7(H) 3.5 - 5.2 gm/dL 01/29/2025 4:59 PM [facility] Total Protein 9.1(H) 6.4 - 8.3 gm/dL 01/29/2025 4:59 PM [facility] Bili Total 3.3(H) 0.2 - 1.4 mg/dL 01/29/2025 4:59 PM [facility] ALT 24 <=41 U/L 01/29/2025 4:59 PM [facility] AST 42(H) <=40 U/L 01/29/2025 4:59 PM [facility] Alk Phos 70 40 - 129 U/L 01/29/2025 4:59 PM [facility] eGFR (CKD-EPIcr 2020) 66 >=60 mL/min/1.7 3 m2 01/29/2025 4:59 PM [facility] Comment:Estimated GFR was ca lculated using the CKD-EPIcr (2020) equation refit without race. The equation is recommended by the National Kidney Foundation - [place] [employer] of Nephrology Task Force. Blood VENOUS BLOOD / Unknown Venipuncture / Unknown 01/29/2025 4:31 PM EDT 01/29/2025 4:34 PM EDT us Wanda Liu BREWMASTER CHEMISTRY ORDERABLES Final Result [facility] [address] [place], [place] [phone] * (ABNORMAL) CBC WITH DIFF (01/29/2025 4:31 PM EDT) WBC 16.0(H) 3.7 - 10.3 x10(3)/mcL 01/29/2025 4:38 PM EDT [facility] RBC 5.27 4.60 - 6.10 x10(6)/mcL 01/29/2025 4:38 PM EDT [facility] Hgb 15.8 13.7 - 17.5 g/dL 01/29/2025 4:38 PM EDT [facility] Hct 45.3 40.0 - 51.0 % 01/29/2025 4:38 PM EDT [facility] MCV 86.0 80.0 - 100.0 fL 01/29/2025 4:38 PM EDT [facility] MCH 30.0 26.0 - 34.0 pg 01/29/2025 4:38 PM EDT [facility] MCHC 34.9 30.7 - 35.5 g/dL 01/29/2025 4:38 PM EDT [facility] RDW 12.1 <=14.9 % 01/29/2025 4:38 PM EDT [facility] Platelet 284 155 - 369 x10(3)/mcL 01/29/2025 4:38 PM EDT [facility] MPV 11.6 8.8 - 12.5 fL 01/29/2025 4:38 PM EDT [facility] Neut Percent 75.5 % 01/29/2025 4:38 PM EDT [facility] Comment:Neutrophils equals s egs plus bands Imm Gran% 0.3 % 01/29/2025 4:38 PM EDT [facility] Comment:Automated count of m etamyelocytes, myelocytes and promyelocytes. Lymph Percent 12.7 % 01/29/2025 4:38 PM EDT [facility] [place] Percent 11.3 % 01/29/2025 4:38 PM EDT [facility] Eos Percent 0.1 % 01/29/2025 4:38 PM EDT [facility] Baso Percent 0.1 % 01/29/2025 4:38 PM EDT [facility] Neut # 12.1(H) 1.6 - 6.1 x10(3)/mcL 01/29/2025 4:38 PM T [facility] Comment:Neutrophils equals s egs plus bands IMMGRAN# 0.1 0.0 - 0.1 x10(3)/mcL 01/29/2025 4:38 PM T [facility] Comment:Automated count of m etamyelocytes, myelocytes and promyelocytes. An absolute IG <0.1 is reported as 0.0. Lymph # 2.0 1.2 - 3.9 x10(3)/mcL 01/29/2025 4:38 PM EDT [facility] [place] # 1.8(H) 0.3 - 0.9 x10(3)/mcL 01/29/2025 4:38 PM EDT [facility] Eos# 0.0 0.0 - 0.5 x10(3)/mcL 01/29/2025 4:38 PM EDT [facility] Baso # 0.0 0.0 - 0.1 x10(3)/mcL 01/29/2025 4:38 PM EDT [facility] Blood VENOUS BLOOD / Unknown Venipuncture / Unknown 01/29/2025 4:31 PM EDT 01/29/2025 4:34 PM EDT us Wanda Liu BREWMASTER HEMATOLOGY ORDERABLES Final Result [facility] [address] [place] [id number] * ALCOHOL MEDICAL (01/29/2025 4:30 PM EDT) [facility] Alcohol Medical <10 <=10 mg/dL 4:46 PM EDT [facility] Comment: 50-100 mg/dL - Flushing, slowing of reflexes, impaired visual acuity > 100 mg/dL - Depression of COMMUNITY COORDINATOR > 400 mg/dL - Fatalities reported Blood VENOUS BLOOD / Unknown Venipuncture / Unknown 01/29/2025 4:30 PM EDT 01/29/2025 4:34 PM EDT Wanda Liu APRN CHEMISTRY ORDERABLES Final Result Performing Organization Address [facility] Co de Phone Number [facility] [address] [place] [address] * [id number] A/B (01/29/2025 4:28 PM EDT) [facility] CORONAVIRUS [id number] Not Detected Not Detected 01/29/2025 4:57 PM EDT [facility] Influenza A DNA Not Detected Not Detected 01/29/2025 4:57 PM EDT [facility] Influenza B DNA Not Detected Not Detected 01/29/2025 4:57 PM EDT [facility] Swab BOTH ANTERIOR NARES / Unknown 01/29/2025 4:28 PM EDT 01/29/2025 4:34 PM EDT Wanda Liu APRN MICROBIOLOGY - GENERAL ORDE RABLES Final Result Performing Organization Address [facility]/ZIP Co de Phone Number [facility] [address] [place] [address] * EXTRA ARROYO URINE CX (01/29/2025 4:28 PM EDT) Urine STRUCTURE OF URINARY TRACT PROPER / Unknown 01/29/2025 4:28 PM EDT 01/29/2025 4:35 PM EDT us Wanda Liu BREWMASTER MICROBIOLOGY - GENERAL JUAN C SILVA Final Result [facility] [address] [place] [address] * (ABNORMAL) URINALYSIS REFLEX (01/29/2025 4:28 PM EDT) UA Color Yellow 01/29/2025 4:44 PM EDT [facility] UA Appear Clear Clear 01/29/2025 4:44 PM EDT [facility] UA Glucose Negative Negative mg/dL 01/29/2025 4:44 PM EDT [facility] UA Ketones 1+ (15 mg/dL)(A) Negative mg/dL 01/29/2025 4:44 PM EDT [facility] UA Blood Trace-Intac t(A) Negative 01/29/2025 4:44 PM EDT [facility] UA pH 6.0 5.0 - 8.0 pH 01/29/2025 4:44 PM EDT [facility] UA Protein >=300(A) Negative mg/dL 01/29/2025 4:44 PM EDT [facility] UA Urobilinogen 1.0 <=1 mg/dL 4:44 PM EDT [facility] UA Bili 01/29/2025 4:44 PM EDT [facility] Comment:Unable to report. Ca nnot rule out interfering substances that may yield false positive results. Consider correlation with serum bilirubin result. UA Nitrite Negative Negative 01/29/2025 4:44 PM EDT [facility] UA Leuk Est Negative Negative 01/29/2025 4:44 PM EDT [facility] UA Spec Grav >=1.030 1.001 - 1.035 no units 01/29/2025 4:44 PM EDT [facility] Comment:Reference range kalpesh d for random specimens only. UA WBC 1 0 - 4 /HPF 01/29/2025 4:44 PM EDT [facility] UA RBC 2 0 - 3 /HPF 01/29/2025 4:44 PM EDT [facility] UA Mucus 3+ /LPF 01/29/2025 4:44 PM EDT [facility] UA Amorph 1+ /HPF 01/29/2025 4:44 PM EDT [facility] UA Bacteria 1+(A) Negative /HPF 01/29/2025 4:44 PM EDT [facility] UA Hyal Cast 15(H) 0 - 2 /LPF 01/29/2025 4:44 PM EDT [facility] Urine STRUCTURE OF URINARY TRACT PROPER / Unknown 01/29/2025 4:28 PM EDT 01/29/2025 4:34 PM EDT us Wanda R Robinsonus BREWMASTER URINE ORDERABLES Final Resu lt [facility] [address] [place], [place] [id number] * (ABNORMAL) DRUG SCREEN RAPID PANEL, URINE (01/29/2025 4:28 PM EDT) Cannabinoid Rapid Presumptive Pos(A) Absent 01/29/2025 4:48 PM EDT [facility] Cocaine Rapid Absent Absent 01/29/2025 4:48 PM EDT [facility] Methamphetamine Rapid Absent Absent 01/29/2025 4:48 PM EDT [facility] Opiate Rapid Absent Absent 01/29/2025 4:48 PM EDT [facility] Amphetamine Rapid Absent Absent 025 4:48 PM EDT [facility] Benzodiazepines Rapid Absent Absent 01/29/2025 4:48 PM EDT [facility] Tricyclic Rapid Absent Absent 4:48 PM EDT [facility] Methadone Rapid Absent Absent 4:48 PM EDT [facility] Barbiturate Rapid Absent Absent 025 4:48 PM EDT [facility] Oxycodone Rapid Absent Absent 4:48 PM EDT [facility] BUPRENORPHINE RAPID Absent Absent 01/29/2025 4:48 PM EDT [facility] Urine STRUCTURE OF URINARY TRACT PROPER / Unknown 01/29/2025 4:28 PM EDT 01/29/2025 4:34 PM EDT Narrative [facility] - 01/29/2025 4:48 PM EDT These drug classes have been qualitatively screened by immunoassay and are for medical purposes only. Results reported as presumptive positive have not been confirmed. If results don t reflect the clinical picture, the prescribed medication, or the discussion with the patient, confirmation testing is recommended on the ORIGINAL urine. All urine specimens for drug testing are held for 7 days. If confirmation testing is desired, call the [facility]. Due to possible factors, such as, dilute/adulterated urine, concentration of drug/metabolite being below the cut-off, or antibody specificity of test reagent, a negative result does not rule out drug use. These results are only valid for urine specimens. Any contamination with vaginal pool/amniotic fluid could cause erroneous results. us Wanda Liu BREWMASTER URINE ORDERABLES Final Resu lt [facility] [address] [place] [address] documented in this encounter Visit Diagnoses Diagnosis Cannabinoid hyperemesis syndrome- Primary documented in this encounter Administered Medications Inactive Administered Medications - up to 1 most recent administrations Medication Order MAR Action Action Date Dose Rate Site diphenhydrAMINE (BENADRYL) injection 25 mg 25 mg, Intravenous, ONCE, 1 dose, On Sat01/29/25 at 1615 Given 01/29/2025 4:35 PM EDT 25 mg droPERidol (INAPSINE) injection 1.25 mg 1.25 mg, Intravenous, ONCE, 1 dose, On Sat01/29/25 at 1615 Given 01/29/2025 4:34 PM EDT 1.25 mg famotidine (PEPCID) injection 20 mg 20 mg, Intravenous, ONCE, 1 dose, On Sat01/29/25 at 1730 Given 01/29/2025 5:30 PM EDT 20 mg haloperidol lactate (HALDOL) injection 5 mg 5 mg, Intravenous, ONCE, 1 dose, On Sat01/29/25 at 1700 Given 01/29/2025 4:51 PM EDT 5 mg iopamidoL (ISOVUE-370) 370 mg iodine /mL (76 %) injection (LOW) 100 mL 100 mL, Intravenous, ONCE PRN, 1 dose, Starting on Sat01/29/25 at 1628, Until Sat01/29/25 at 1715, Radiography/Imaging, Radiology Procedure, VESICANT , CT (Contrasts) Given 01/29/2025 5:15 PM EDT 100 mL sodium chloride 0.9 % 1,000 mL IV bolus Intravenous, ONCE, 1 dose, On Sat01/29/25 at 1615, at 983.6 mL/hr IV Started 01/29/2025 4:35 PM EDT 983.6 mL/hr sodium chloride 0.9 % 1,000 mL IV bolus Intravenous, ONCE, 1 dose, On Sat01/29/25 at 1715, at 983.6 mL/hr IV Started 01/29/2025 5:24 PM EDT 983.6 mL/hr sodium chloride 0.9% IV line flush 50 mL 50 mL, Intravenous, at 999 mL/hr, PRN, Starting on Sat01/29/25 at 1607, Until Sat01/29/25 at 2325, Line Care, Flush with 50 mL after IVPB to insure complete administration of the dose. May use the saline infusion to back flush IVPB tubing as needed., Use this order to document priming and flushing IV line after medication administration. sodium chloride 0.9% syringe 5-10 mL 5-10 mL, Intravenous, PRN, Starting on Sat01/29/25 at 1607, Until Sat01/29/25 at 2325, Line Care, Flush with 5 mL saline pre/post IVP, and 5 mL prior to IVPB or blood product administration. Protocol for PERIPHERAL IV saline lock maintenance, flush with 3-5 mL saline syringe every 8 hours., Flush peripheral lines every 12 hours, central lines every 8 hours, and after IV medication sodium chloride 0.9% syringe Intravenous, ONCE PRN, 1 dose, Starting on Sat01/29/25 at 1628, Until Sat01/29/25 at 1715, Line Care, Flush peripheral lines every 12 hours, central lines every 8 hours, and after IV medication, CT (Contrasts) Given 01/29/2025 5:15 PM EDT 20 mL documented in this encounter Active and Recently Administered Medications Times are shown in EDT. Scheduled Medication Order 01/27/2025 01/28/2025 01/29/2025 diphenhydrAMINE (BENADRYL) injection 25 mg (COMPLETED) 25 mg, Intravenous, ONCE, 1 dose, On Sat01/29/25 at 1615 1635 (Given - Provid er: Nestor Jean Baptiste RN) droPERidol (INAPSINE) injection 1.25 mg (COMPLETED) 1.25 mg, Intravenous, ONCE, 1 dose, On Sat01/29/25 at 1615 1634 (Given - Provid er: Nestor Jean Baptiste RN) famotidine (PEPCID) injection 20 mg (COMPLETED) 20 mg, Intravenous, ONCE, 1 dose, On Sat01/29/25 at 1730 1730 (Given - Provid er: Nestor Jean Baptiste RN) haloperidol lactate (HALDOL) injection 5 mg (COMPLETED) 5 mg, Intravenous, ONCE, 1 dose, On Sat01/29/25 at 1700 1651 (Given - Provid er: Nestor Jean Baptiste RN) sodium chloride 0.9 % 1,000 mL IV bolus (COMPLETED) Intravenous, ONCE, 1 dose, On Sat01/29/25 at 1615, at 983.6 mL/hr 1635 (IV Started - P rovider: Nestor Jean Baptiste RN)1736 (Stopped - Provider: Nestor Jean Baptiste RN) sodium chloride 0.9 % 1,000 mL IV bolus (COMPLETED) Intravenous, ONCE, 1 dose, On Sat01/29/25 at 1715, at 983.6 mL/hr 1724 (IV Started - P rovider: Nestor Jean Baptiste RN)1825 (Stopped - Provider: Nestor Jean Baptiste RN) PRN Medication Order 01/27/2025 01/28/2025 01/29/2025 iopamidoL (ISOVUE-370) 370 mg iodine /mL (76 %) injection (LOW) 100 mL (COMPLETED) 100 mL, Intravenous, ONCE PRN, 1 dose, Starting on Sat01/29/25 at 1628, Until Sat01/29/25 at 1715, Radiography/Imaging, Radiology Procedure, VESICANT , CT (Contrasts) 1715 (Given - Provid er: Teresa Dunn, RT) sodium chloride 0.9% IV line flush 50 mL 50 mL, Intravenous, at 999 mL/hr, PRN, Starting on Sat01/29/25 at 1607, Until Sat01/29/25 at 2325, Line Care, Flush with 50 mL after IVPB to insure complete administration of the dose. May use the saline infusion to back flush IVPB tubing as needed., Use this order to document priming and flushing IV line after medication administration. sodium chloride 0.9% syringe 5-10 mL 5-10 mL, Intravenous, PRN, Starting on Sat01/29/25 at 1607, Until Sat01/29/25 at 2325, Line Care, Flush with 5 mL saline pre/post IVP, and 5 mL prior to IVPB or blood product administration. Protocol for PERIPHERAL IV saline lock maintenance, flush with 3-5 mL saline syringe every 8 hours., Flush peripheral lines every 12 hours, central lines every 8 hours, and after IV medication sodium chloride 0.9% syringe (COMPLETED) Intravenous, ONCE PRN, 1 dose, Starting on Sat01/29/25 at 1628, Until Sat01/29/25 at 1715, Line Care, Flush peripheral lines every 12 hours, central lines every 8 hours, and after IV medication, CT (Contrasts) 1715 (Given - Provid er: Teresa Dunn, RT) documented in this encounter Orders Medications Ordered That Jay ht Not Have Been Administered Count Last Ordered Date First Ordered Date sodium chloride 0.9% IV line flush 50 mL 1 01/29/2025 sodium chloride 0.9% syringe 5-10 mL 1 01/02 documented in this encounter Additional Health Concerns Infection Onset Date Last Indicated Resolved Time R/O COVID-19 01/29/2025 01/29/2025 01/29/2025 4:57 PM EDT documented as of this encounter Care Teams Bill Recapitulation Clerk Relationship Specialty Start Date End Date Nonstaff, Referring PCP - General 01/27/25 documented as of this encounter
--- OUTSIDE RECORDS SUMMARY | 2025-02-03 15:15 | XMS_ITS | Encounter Summary ---
Author Organization [place] [address] Care Team Providers Care Visual Designer Name Role Phone Nonstaff, Referring Primary Care Provider Lucho tatum Reason for Visit * Reason Comments Dizziness Reports 7-10 day his tory of dizziness, vomiting, 3-4 times today. 3rd visit for same symptoms. Cpta-phenergan, baclofen. Encounter Details Date Type Department Care Team (Late st Contact Info) Description 02/03/2025 3:15 PM EDT - 02/03/2025 3:31 PM EDT [facility] [address] [facility]. [place], [place] [id number] Discharge Disposition: Left Without Being Seen Social History Tobacco Use Types Packs/Day Years Used Date Smoking Tobacco: Never Smokeless Tobacco: Never Alcohol Use Standard Drinks/Week Comments Yes 0 (1 standard drink = 0.6 oz pur e alcohol) social Sex and Gender Information Value Date Recorded Sex Assigned at Not on file Legal Sex Male 4:30 AM EDT Gender Identity Not on file Sexual Orientation Not on file documented as of this encounter Last Filed Vital Signs Vital Sign Reading Time Taken Comments Blood Pressure - - Pulse 132 02/03/2025 3:17 PM EDT Temperature - - Respiratory Rate 16 02/03/2025 3:17 PM EDT Oxygen Saturation 100% 02/03/2025 3:17 PM EDT Inhaled Oxygen Concentration - - Weight 59 kg (130 lb) 02/03/2025 3:17 PM EDT Height 175.3 cm (5' 9 ) 02/03/2025 3:17 PM EDT Body Mass Index 19.2 02/03/2025 3:17 PM EDT documented in this encounter Functional Status * Suicide Severity Rating Answer Date of Assessment Author No Risk 02/03/2025 3:20 PM EDT Jada Patel RN * [place] Suicide Severity Rating Scale (Q shift for moderate and high) Question Answer Date of Assessment Author 1. In the past month, have y ou wished you were or wished you could go to sleep and not wake up? 0 02/03/2025 3:20 PM EDT Jada Atkins RN 2. In the past month, have y ou actually had any thoughts of killing yourself? (If no, skip to question 6) 0 02/03/2025 3:20 PM EDT Jada Patel RN 6. Have you ever done anythi ng, started to do anything, or prepared to do anything to end your life? 0 02/03/2025 3:20 PM EDT Jada Goodwin RN documented as of this encounter Medications at Time of Discharge [...] 01/29/2025 02/28/2025 documented as of this encounter Discharge Disposition Disposition Code Departure Means Destination Comment s Left Without Being Seen Home Pt opted to leave before being seen, after triage. States he is feeling better. documented in this encounter Plan of Treatment Not on file documented as of this encounter Visit Diagnoses Not on filedocumented in this encounter Care Teams Visual Designer Relationship Specialty Start Date End Date Nonstaff, Referring PCP - General 01/27/25 documented as of this encounter
[2025-03-17] VITALS (8 sets, daily range): BP systolic 132–142; BP diastolic 89–98; PULSE 74–108; RESP 14–24; TEMP 36.4–36.8; O2SAT 97–100; BMI 16.2; BMI 17.7
--- NOTE | 2025-03-17 12:59 | ED_ITS ---
<Statement entered by Callie Gerardo DO - 03/17/25 15:18> I was consulted by the HANNA, and we discussed the complexity of problems being addressed. I approved the treatment plan and management plan of this patient's care in the emergency department, thus performing a substantive portion of medical decision making. Callie Gerardo DO Discharge Plan Disposition Patient Disposition: Admitted Condition: Fair Referrals Follow up/Referrals: Provider,Referral, MD [Primary Care Provider, Medical] - See instructions Clinical Impressions Clinical Impression: Acute kidney injury, Bilirubinemia Print Language Print Language: Taiwanese Discharge ED Provider: Callie Gerardo General Adult HPI <Franny Mcdonnell - Last Filed: 03/17/25 13:52> General Chief complaint: Nausea/Vomiting/Diarrhea Stated complaint: Dehydrated, vomiting Time Seen by Provider: 03/17/25 12:59 History of Present Illness HPI narrative: 30-year-old male presents emergency department complaints of nausea and vomiting for the past 3 days. He denies diarrhea, fevers, abdominal pain. He has a history of cannabinoid hyperemesis however he states he has not used any marijuana for the past month. He also denies any alcohol use. Related Data Allergies Allergy/AdvReac Type Severity Reaction Status Date / Time No Known Allergies Allergy Verified 01/25/25 17:30 PFSH <Franny Mcdonnell - Last Filed: 03/17/25 13:52> PFS Disclaimer: The information contained in this section may have been updated after the patient was seen, as this information can be updated by other users. Social History (Updated 01/25/25 @ 18:47 by MARGARET Miles) Smoking Status: Current every day smoker alcohol intake: current current occupational status: other Travel in the last 8 weeks?: None Have you lived/traveled outside [place] in past 30 days?: No Contact w/someone who lives/traveled outside US past 30 days?: No Exposure to someone with infectious disease in past 14 days?: No Do you have a fever (greater than 100.4 F or 38 C)?: No Have you tested positive for COVID-19?: No Exposed to someone with COVID-19 in past 14 days?: No Do you have a sore throat?: No Do you have a cough?: No Do you have any weakness?: No Do you have any diarrhea?: No Are you experiencing any unusual bleeding?: No Do you have any muscle aches/pain?: No Do you have any abdominal pain?: No Are you experiencing loss of taste or smell?: No <Franny Mcdonnell - Last Filed: 03/17/25 13:52> ROS Obtained: Yes other Gastrointestinal Gastrointestingal: Reports nausea and vomiting Physical Exam <Franny Mcdonnell Last Filed: 03/17/25 13:52> Narrative Physical exam: General: Awake, aware, in no acute distress HEENT: Normocephalic, no evidence of trauma CV: RRR, no murmurs, rubs, or gallops Pulm: CTA bilaterally with no rhonchi, rales, wheezes ABD: Nontender, no swelling, guarding, or rebound tenderness Psych, appropriate mood and affect General General appearance: alert Respiratory Respiratory exam: Present normal lung sounds bilaterally Cardiovascular Cardiovascular exam: Present regular rate Neurological Exam Neurological exam: Present alert Medical Decision Making <Franny Mcdonnell Filed: 03/17/25 13:52> Medical Records Screening: Per USPSTF and CDC recommendations, given the prevalence of disease in our region, it is our hospital?s policy to screen for HIV and viral Hepatitis for all patients aged 18 and over and those with ongoing risk factors. Otilio Inquiry Pt receiving controlled substance: No Vital Signs: 03/17/25 13:01 Temperature 97.6 F Temperature Source Oral Pulse Rate [Right Radial] 108 H Respiratory Rate 16 Blood Pressure [Right Arm] 135/91 H Blood Pressure Mean [Right Arm] 105 Blood Pressure Source [Right Arm] Automatic Cuff Blood Pressure Position [Right Arm] Supine 02 Sat by Pulse Oximetry 98 Oxygen Delivery Method Room Air Lab Data Lab Results 03/17/25 12:55: Urine Color Yellow, Urine Appearance Clear, Urine pH 6.0, Ur Specific Clay >= 1.030, Urine Protein 1+ A, Urine Glucose (UA) Negative, Urine Ketones Negative, Urine Blood 2+ A, Urine Nitrate Negative, Urine Bilirubin Negative, Urine Urobilinogen 0.2, Ur Leukocyte Esterase Negative, Urine RBC 5-10, Urine WBC 3-5, Ur Squamous Epith Cells Occasional, Urine Bacteria Trace, Hyaline Casts Occ 03/17/25 13:00: WBC 18.1 H, RBC 5.34, Hgb 16.3, Hct 45.5, MCV 85.2, MCH 30.5, M CHC 35.8 H, RDW 12.1, Plt Count 300, MPV 12.3 H, Neut % (Auto) 64.8, Lymph % (Auto) 14.0, Ramsey % (Auto) 12.1 H, Eos % (Auto) 8.3, Baso % (Auto) 0.2, Neut # (Auto) 11.8 H, Lymph # (Auto) 2.5, Ramsey # (Auto) 2.2 H, Eos # (Auto) 1.5 H, Baso # (Auto) 0.0, Sodium 128 L, Potassium 3.6, Chloride 73 L, Carbon Dioxide 34 H, A nion Gap 24.6 H, BUN 79 H, Creatinine 2.60 H, Estimated Creat Clear 30, E stimated GFR 29 L, Est GFR ( Amer) 35 L, Glucose 126 H, Lactate 3.6 H, Calcium 9.3, Total Bilirubin 5.9 H, AST 41, ALT 39, Alkaline Phosphatase 61, T otal Protein 9.9 H, Albumin 5.5 H, Globulin 4.4 H, Albumin/Globulin Ratio 1.3, Lipase 95, Urine Opiates Screen Negative, Urine Methadone Screen Negative, Ur Barbituates Screen Negative, Ur Phencyclidine Scrn Negative, Ur Amphetamines Screen Negative, U Benzodiazepines Scrn Negative, Urine Cocaine Screen Negative, U Marijuana (THC) Screen Negative 03/17/25 13:00 03/17/25 13:00 Orders (Tests/Meds): ED MEDICATIONS Generic Name Dose Route Start Last Admin Trade Name Freq PRN Reason Stop Dose Admin Sodium Chloride 1,000 mls @ 999 mls/hr 03/17/25 13:01 03/17/25 13:12 Sod Chlor 0.9% 1000ml Bag IV 03/17/25 14:01 999 mls/hr .Q1H1M ONE Administration Sodium Chloride 1,000 mls @ 999 mls/hr 03/17/25 13:35 Sod Chlor 0.9% 1000ml Bag IV 03/17/25 14:35 .Q1H1M ONE Discontinued Medications Generic Name Dose Route Start Last Admin Trade Name Freq PRN Reason Stop Dose Admin Ondansetron HCl 4 mg 03/17/25 13:01 03/17/25 13:12 Ondansetron 4mg/2ml Vial IV 03/17/25 13:02 4 mg ONCE ONE Administration ORDERS Category Date Time Status CT abdomen pelvis wo con Stat Cat Scan 03/17/25 13:47 Ordered CBC w/Auto Diff [Complete Blood Count Auto Diff] Stat Lab 03/17/25 13:00 Results CMP [Comprehensive Metabolic Panel] Stat Lab 03/17/25 13:00 Completed Creatine Kinase Stat Lab 03/17/25 13:00 Received Drug Screen,Urine Stat Lab 03/17/25 13:00 Completed HIV Combo Stat Lab 03/17/25 13:00 Received Hepatitis C Ab Qual. W/ RFX Stat Lab 03/17/25 13:00 Received Lactic Acid Stat Lab 03/17/25 13:00 Completed Lipase Stat Lab 03/17/25 13:00 Completed Troponin I Q3H Lab 03/17/25 16:15 Ordered Troponin I Q3H Lab 03/17/25 19:15 Ordered Troponin I Stat Lab 03/17/25 13:00 Received UA [Urinalysis and Microscopic] Stat Lab 03/17/25 12:55 Completed Blood Culture Stat Micro 03/17/25 13:37 Received Medical Decision Narrative: Initial impression of presenting illness: 30-year-old male presents emergency department with complaints of nausea and vomiting for the past 3 days. He denies fevers, abdominal pain, diarrhea. He does have a history of cannabinoid hyperemesis however he states that he has not used marijuana for the past month. He also denies alcohol use Differential diagnosis includes but is not limited to: Gastritis, gastroenteritis, cannabinoid hyperemesis, dehydration, electrolyte abnormality, acute kidney injury Patient arrives hemodynamically stable, afebrile, without respiratory distress with vital signs interpreted by myself. Initial physical exam unremarkable. Abdomen is soft nontender with normal active bowel sounds. Initial diagnostic plan: Abdominal pain workup including a normal saline bolus for hydration and Zofran for nausea Results from initial plan were reviewed and interpreted by myself, pertinent positives include: White blood cell count 18.1, sodium 128, chloride 73, BUN 79, creatinine 2.6, GFR 29, total bilirubin 5.9. Urinalysis was positive for 1+ protein as well as 2+ blood. Urine drug screen, troponin, creatinine kinase, lactic acid are still pending at this time. Interventions in the ED: Patient was given normal saline bolus initially for hydration as well as Zofran for nausea. Given patient's lab results second normal saline bolus was ordered Patient was made aware of the results and the findings, upon reevaluation patient has remained stable throughout stay, symptoms remained stable. Upon reevaluation patient is resting comfortably in his bed. He has not had any episodes of vomiting during his ER stay. Consultation/discussion with other physicians: Spoke with hospitalist SALVADOR Stern regarding patient's workup findings thus far and his presenting complaint. She was agreeable to admit patient for treatment of acute kidney injury however recommended that we get a CT of abdomen pelvis without contrast prior to him leaving the department. Disposition: I have updated patient on workup findings and his need for admission he is agreeable to admission at this time. <Callie Gerardo, DO - Last Filed: 03/17/25 13:18> Vital Signs: 03/17/25 13:01 Temperature 97.6 F Temperature Source Oral Pulse Rate [Right Radial] 108 H Respiratory Rate 16 Blood Pressure [Right Arm] 135/91 H Blood Pressure Mean [Right Arm] 105 Blood Pressure Source [Right Arm] Automatic Cuff Blood Pressure Position [Right Arm] Supine 02 Sat by Pulse Oximetry 98 Oxygen Delivery Method Room Air Lab Data Lab Results 03/17/25 12:55: Urine Color Yellow, Urine Appearance Clear, Urine pH 6.0, Ur Specific Clay >= 1.030, Urine Protein 1+ A, Urine Glucose (UA) Negative, Urine Ketones Negative, Urine Blood 2+ A, Urine Nitrate Negative, Urine Bilirubin Negative, Urine Urobilinogen 0.2, Ur Leukocyte Esterase Negative, Urine RBC 5-10, Urine WBC 3-5, Ur Squamous Epith Cells Occasional, Urine Bacteria Trace, Hyaline Casts Occ 03/17/25 13:00: WBC 18.1 H, RBC 5.34, Hgb 16.3, Hct 45.5, MCV 85.2, MCH 30.5, M CHC 35.8 H, RDW 12.1, Plt Count 300, MPV 12.3 H, Neut % (Auto) 64.8, Lymph % (Auto) 14.0, Ramsey % (Auto) 12.1 H, Eos % (Auto) 8.3, Baso % (Auto) 0.2, Neut # (Auto) 11.8 H, Lymph # (Auto) 2.5, Ramsey # (Auto) 2.2 H, Eos # (Auto) 1.5 H, Baso # (Auto) 0.0, Sodium 128 L, Potassium 3.6, Chloride 73 L, Carbon Dioxide 34 H, A nion Gap 24.6 H, BUN 79 H, Creatinine 2.60 H, Estimated Creat Clear 30, E stimated GFR 29 L, Est GFR ( Amer) 35 L, Glucose 126 H, Lactate 3.6 H, Calcium 9.3, Total Bilirubin 5.9 H, AST 41, ALT 39, Alkaline Phosphatase 61, T otal Protein 9.9 H, Albumin 5.5 H, Globulin 4.4 H, Albumin/Globulin Ratio 1.3, Lipase 95, Urine Opiates Screen Negative, Urine Methadone Screen Negative, Ur Barbituates Screen Negative, Ur Phencyclidine Scrn Negative, Ur Amphetamines Screen Negative, U Benzodiazepines Scrn Negative, Urine Cocaine Screen Negative, U Marijuana (THC) Screen Negative Orders (Tests/Meds): ED MEDICATIONS Generic Name Dose Route Start Last Admin Trade Name Freq PRN Reason Stop Dose Admin Sodium Chloride 1,000 mls @ 999 mls/hr 03/17/25 13:01 03/17/25 13:12 Sod Chlor 0.9% 1000ml Bag IV 03/17/25 14:01 999 mls/hr .Q1H1M ONE Administration Sodium Chloride 1,000 mls @ 999 mls/hr 03/17/25 13:35 Sod Chlor 0.9% 1000ml Bag IV 03/17/25 14:35 .Q1H1M ONE Discontinued Medications Generic Name Dose Route Start Last Admin Trade Name Freq PRN Reason Stop Dose Admin Ondansetron HCl 4 mg 03/17/25 13:01 03/17/25 13:12 Ondansetron 4mg/2ml Vial IV 03/17/25 13:02 4 mg ONCE ONE Administration ORDERS Category Date Time Status CT abdomen pelvis wo con Stat Cat Scan 03/17/25 13:47 Ordered CBC w/Auto Diff [Complete Blood Count Auto Diff] Stat Lab 03/17/25 13:00 Results CMP [Comprehensive Metabolic Panel] Stat Lab 03/17/25 13:00 Completed Creatine Kinase Stat Lab 03/17/25 13:00 Received Drug Screen,Urine Stat Lab 03/17/25 13:00 Completed HIV Combo Stat Lab 03/17/25 13:00 Received Hepatitis C Ab Qual. W/ RFX Stat Lab 03/17/25 13:00 Received Lactic Acid Stat Lab 03/17/25 13:00 Completed Lipase Stat Lab 03/17/25 13:00 Completed Troponin I Q3H Lab 03/17/25 16:15 Ordered Troponin I Q3H Lab 03/17/25 19:15 Ordered Troponin I Stat Lab 03/17/25 13:00 Received UA [Urinalysis and Microscopic] Stat Lab 03/17/25 12:55 Completed Blood Culture Stat Micro 03/17/25 13:37 Received ECG Data Tracing #1: I reviewed this ECG and interpreted as documented below: EKG shows normal sinus rhythm at a rate of 103. Normal MT, QRS, and QTc intervals. Normal axis. No acute ST elevations or signs of acute subendocardial or transmural ischemia. T waves in V3 and V4 are somewhat prominent, will order troponin in addition to other workup. Critical Care <Franny Mcdonnell - Last Filed: 03/17/25 13:52> Critical Care Time Critical Care Time: No
--- OUTSIDE RECORDS SUMMARY | 2025-03-17 13:00 | XMS_ITS | Clinical Summary ---
Author Organization [facility] Address [address] [place] [id number] Care Team Providers Care Wrecker Operator Name Role Phone Brittni Cuevas MD Primary Care Provider [phone] Source Comments [facility] is fully rolled out with thefollowing exceptions:[facility] Medications methylphenidate (CONCERTA) 54 MG [...] IMMUNIZATION (1 - 3-dose SCDM series) 01/08/2023 AMB SEASONAL FLU VACCINE (#1) 02/01/2025 COVID-19 Vaccine (1 - 2023-2 5 season) 2025 HIB IMMUNIZATION Aged Out No longer e [...] to complete this topic Insurance Care Teams Wrecker Operator Relationship Specialty Start Date End Date Brittni Cuevas MD PCP - General External Medicine 09/25/10
--- OUTSIDE RECORDS SUMMARY | 2025-03-17 13:00 | XMS_ITS | Encounter Summary ---
Author Organization [facility] [place] [id number] Care Team Providers Care Gore Stitcher Name Role Phone Nonstaff, Referring Primary Care Provider Lucho tatum Encounter Details Date Type Department Care Team (Latest Contact Info) Description 02/03/2025 Travel Social History Tobacco Use Types Packs/Day Years [...] on file documented as of this encounter Functional Status * Suicide Severity Rating Answer Date of Assessment Author No Risk 02/03/2025 3:20 PM EDT Jada Patel RN * Elliott Suicide Severity Rating Scale (Q shift for [...] Goodwin RN documented as of this encounter Plan of Treatment Not on file documented as of this encounter Visit Diagnoses Not on filedocumented in this encounter Care Teams Gore Stitcher Relationship Specialty Start Date End Date Nonstaff, Referring PCP - General 01/27/25 documented as of this encounter
--- OUTSIDE RECORDS SUMMARY | 2025-03-17 13:00 | XMS_ITS | Clinical Summary ---
Author Organization [facility] Address [address] [place] [address] Phone Care Team Providers Care Sheet Metal Mechanic Name Role Phone Nonstaff, Referring Primary Care Provider Lucho tatum Allergies No known active allergies Medications omeprazole (PRILOSEC) 20 mg Oral Capsule, Delayed Release(E.C.) Take 1 Capsule by mouth every morning (before breakfast). 30 Capsule Active Additional Information Patient not taking.Reason: Pt electing to not take the medication, Reported on 02/03/2025 ondansetron (ZOFRAN-ODT) 4 mg Oral Tablet, Rapid Dissolve Dissolve 1 Tablet by mouth every 6 hours as needed for Nausea for up to 30 days. 12 Tablet 5 02/27/20 25 promethazine (PHENERGAN) 25 mg Oral Tablet Take 1 Tablet by mouth 3 times daily as needed for Nausea for up to 30 days. 10 Tablet 5 02/29/20 25 Active Problems Problem Noted Date Diagnosed Date Irritability and anger 12/20/2011 Behavioral disorder 12/20/2011 ADHD (attention deficit hyperactivity disorder) 12/20/2011 Encounters Date Type Department Care Team Description 02/03/2025 3:15 PM EDT - 02/03/2025 3:31 PM EDT Emergency [facility] [address] [place] [address] Discharge Disposition: Left Without Being Seen 02/03/2025 Travel 01/29/2025 4:01 PM EDT - 01/29/2025 7:25 PM EDT Emergency [facility] [address] [place] [address] Justin Barragan MD Cannabinoid hyperemesis syndrome (Primary Dx) Discharge Disposition: Home or Self Care 01/29/2025 Travel 01/27/2025 4:17 PM EDT - 01/27/2025 8:25 PM EDT Emergency [facility] [address] [place] [address] Renetta Thornton MD Nausea and vomiting, unspecified vomiting type (Primary Dx) Discharge Disposition: Home or Self Care 01/27/2025 Travel from Last 3 Months Medical History Medical History Date Comments ADHD [...] on file Sexual Orientation Not on file Last Filed Vital Signs Vital Sign Reading Time Taken Comments Blood Pressure 141/87 01/29/2025 7:00 PM EDT Pulse 132 02/03/2025 3:17 PM EDT Temperature 36.7 C (98 F) 01/29/2025 4:06 PM EDT Respiratory Rate 16 02/03/2025 3:17 PM EDT Oxygen Saturation 100% 02/03/2025 3:17 PM EDT Inhaled Oxygen Concentration - - Weight 59 kg (130 lb) 02/03/2025 3:17 PM EDT Height 175.3 cm (5' 9 ) 02/03/2025 3:17 PM EDT Body Mass Index 19.2 02/03/2025 3:17 PM EDT Plan of Treatment Health Maintenance Due Date Last Done Comments Annual Wellness Exam 01/08/1999 COVID-19 Vaccine ( season) 2025 Influenza Vaccine (#1) 2025 0, 02/24/2009, 04/08/2008 DTaP/TDaP/Td (8 - Td or Tdap) 02/20/2027 02/20/2017, 12/29/2007, 01/12/2000, Additional history exists Hepatitis B Vaccine Completed 01/04/1997, 1996, 1996 Meningococcal B Vaccine Aged Out No l onger eligible based on patient's age to complete this topic Pneumococcal Vaccine 0-49 Aged Out No longer eligible based on patient's age to complete this topic Procedures Procedure Name Priority Date/Time Associated Diagnosis Comments BASIC METABOLIC PANEL STAT 01/29/2025 6:[address] ABD PEL ED FAST W CONTRAST STAT 01/29/2025 5:13 PM EDT LACTIC ACID STAT 01/29/2025 4:31 PM EDT LIPASE LEVEL STAT 01/29/2025 4:31 PM EDT COMPREHENSIVE METABOLIC PANEL STAT 01/29/2025 4:31 PM EDT CBC WITH DIFF STAT 01/29/2025 4:31 PM EDT ALCOHOL MEDICAL STAT 01/29/2025 4:30 PM EDT URINALYSIS REFLEX STAT 01/29/2025 4:2 8 PM EDT DRUG SCREEN RAPID PANEL, URINE STAT 01/29/2025 4:28 PM EDT UA W/REFLEX TO CULTURE STAT 4:28 PM EDT [id number] A/B Routine 01/29/2025 4:2 8 PM EDT EXTRA ARROYO URINE CX STAT 01/29/2025 4 :28 PM EDT BASIC METABOLIC PANEL STAT 01/27/2025 6:59 PM EDT LIPASE LEVEL STAT 01/27/2025 4:41 PM EDT COMPREHENSIVE METABOLIC PANEL STAT 01/27/2025 4:41 PM EDT CBC WITH DIFF STAT 01/27/2025 4:41 PM EDT SALINE LOCK IV STAT 01/27/2025 4:24 PM EDT from Last 3 Months Results * (ABNORMAL) BASIC METABOLIC PANEL (01/29/2025 6:25 PM EDT) Only the most recent of2 resultswithin the time period is included. Sodium 134(L) 136 - 145 mmol/L 01/29/2025 6:55 PM EDT [facility] Potassium 3.6 3.5 - 5.0 mmol/L 01/29/2025 6:55 PM [facility] Chloride 93(L) 98 - 107 mmol/L 01/29/2025 6:55 PM T [facility] Total CO2 26 22 - 29 mmol/L 01/29/2025 6:55 PM [facility] Anion Gap 15 7 - 16 mmol/L 01/29/2025 6:55 PM [facility] Calcium 8.3(L) 8.6 - 10.4 mg/dL 01/29/2025 6:55 PM [facility] Glucose Lvl 100(H) 70 - 99 mg/dL 01/29/2025 6:55 PM [facility] BUN 28(H) 6 - 20 mg/dL 01/29/2025 6:55 PM [facility] Creatinine 1.28 0.67 - 1.30 mg/dL 01/29/2025 6:55 PM [facility] eGFR (CKD-EPIcr 2020) 78 >=60 mL/min/1.7 3 m2 01/29/2025 6:55 PM [facility] Comment:Estimated GFR was ca lculated using the CKD-EPIcr (2020) equation refit without race. The equation is recommended by the National Kid[employer] Foundation - [employer] Neph[employer] Task Force. Blood VENOUS BLOOD / Unknown Venipuncture / Unknown 01/29/2025 6:25 PM EDT 01/29/2025 6:27 PM EDT us Wanda Liu CEMENT PAVER CHEMISTRY ORDERABLES Final Result [facility] [address] [place] [id number] * CT ABD PEL ED FAST W CONTRAST (01/29/2025 5:13 PM EDT) Anatomical Region Laterality Modality Abdomen, Pelvis Computed Tomogra phy 01/29/2025 5:13 PM EDT Impressions 01/29/2025 5:21 PM EDT [...] please contactthe office of the ordering clinician. us Wanda Liu CEMENT PAVER IMG CT ORDERABLES Final Res ult * (ABNORMAL) CBC WITH DIFF (01/29/2025 4:31 PM EDT) Only the most recent of2 resultswithin the time period is included. WBC 16.0(H) 3.7 - 10.3 x10(3)/mcL 01/29/2025 4:38 PM EDT [facility] RBC 5.27 4.60 - 6.10 x10(6)/mcL 01/29/2025 4:38 PM EDT [facility] Hgb 15.8 13.7 - 17.5 g/dL 01/29/2025 4:38 PM [facility] Hct 45.3 40.0 - 51.0 % 01/29/2025 4:38 PM [facility] MCV 86.0 80.0 - 100.0 fL 01/29/2025 4:38 PM [facility] MCH 30.0 26.0 - 34.0 pg 01/29/2025 4:38 PM [facility] MCHC 34.9 30.7 - 35.5 g/dL 01/29/2025 4:38 PM [facility] RDW 12.1 <=14.9 % 01/29/2025 4:38 PM [facility] Platelet 284 155 - 369 x10(3)/mcL 01/29/2025 4:38 PM [facility] MPV 11.6 8.8 - 12.5 fL 01/29/2025 4:38 PM [facility] Neut Percent 75.5 % 01/29/2025 4:38 PM [facility] Comment:Neutrophils equals s egs plus bands Imm Gran% 0.3 % 01/29/2025 4:38 PM [facility] Comment:Automated count of m etamyelocytes, myelocytes and promyelocytes. Lymph Percent 12.7 % 01/29/2025 4:38 PM [facility] [place] Percent 11.3 % 01/29/2025 4:38 PM [facility] Eos Percent 0.1 % 01/29/2025 4:38 PM [facility] Baso Percent 0.1 % 01/29/2025 4:38 PM [facility] Neut # 12.1(H) 1.6 - 6.1 x10(3)/mcL 01/29/2025 4:38 PM [facility] Comment:Neutrophils equals s egs plus bands IMMGRAN# 0.1 0.0 - 0.1 x10(3)/mcL 01/29/2025 4:38 PM [facility] Comment:Automated count of m etamyelocytes, myelocytes and promyelocytes. An absolute IG <0.1 is reported as 0.0. Lymph # 2.0 1.2 - 3.9 x10(3)/mcL 01/29/2025 4:38 PM EDT [facility] [place] # 1.8(H) 0.3 - 0.9 x10(3)/mcL 01/29/2025 4:38 PM EDT [facility] Eos# 0.0 0.0 - 0.5 x10(3)/mcL 01/29/2025 4:38 PM EDT [facility] Baso # 0.0 0.0 - 0.1 x10(3)/[facility] 01/29/2025 4:38 PM EDT [facility] Blood VENOUS BLOOD / Unknown Venipuncture / Unknown 01/29/2025 4:31 PM EDT 01/29/2025 4:34 PM EDT Wanda Liu CEMENT PAVER HEMATOLOGY ORDERABLES Final Result Performing Organization Address [facility] de Phone Number [facility] [address] [place] [address] * LIPASE LEVEL (01/29/2025 4:31 PM EDT) Only the most recent of2 resultswithin the time period is included. Lipase Lvl 19 13 - 60 U/L 01/29/2025 4:52 PM EDT [facility] Blood VENOUS BLOOD / Unknown Venipuncture / Unknown 01/29/2025 4:31 PM EDT 01/29/2025 4:34 PM EDT Wandasugey Liu CEMENT PAVER CHEMISTRY ORDERABLES Final Result Performing Organization Address [facility] de Phone Number [facility] [address] [place] [address] * LACTIC ACID (01/29/2025 4:31 PM EDT) Lactic Acid 1.9 0.5 - 1.9 mmol/L 01/29/2025 4:48 PM EDT [facility] Blood VENOUS BLOOD / Unknown Venipuncture / Unknown 01/29/2025 4:31 PM EDT 01/29/2025 4:34 PM EDT us Wanda Liu CEMENT PAVER CHEMISTRY ORDERABLES Final Result [facility] [address] [place], [place] [id number] * (ABNORMAL) COMPREHENSIVE METABOLIC PANEL (01/29/2025 4:31 PM EDT) Only the most recent of2 resultswithin the time period is included. Sodium 131(L) 136 - 145 mmol/L 01/29/2025 4:59 PM EDT [facility] Potassium 3.5 3.5 - 5.0 mmol/L 01/29/2025 4:59 PM EDT [facility] Chloride 85(L) 98 - 107 mmol/L 01/29/2025 4:59 PM EDT [facility] Total CO2 25 22 - 29 mmol/L 01/29/2025 4:59 PM T [facility] Anion Gap 21(H) 7 - 16 mmol/L 01/29/2025 4:59 PM EDT [facility] Calcium 10.9(H) 8.6 - 10.4 mg/dL 01/29/2025 4:59 PM EDT [facility] Glucose Lvl 115(H) 70 - 99 mg/dL 01/29/2025 4:59 PM EDT [facility] BUN 34(H) 6 - 20 mg/dL 01/29/2025 4:59 PM T [facility] Creatinine 1.47(H) 0.67 - 1.30 mg/dL 01/29/2025 4:59 PM EDT [facility] Albumin 5.7(H) 3.5 - 5.2 gm/dL 01/29/2025 4:59 PM EDT [facility] Total Protein 9.1(H) 6.4 - 8.3 gm/dL 01/29/2025 4:59 PM EDT [facility] Bili Total 3.3(H) 0.2 - 1.4 mg/dL 01/29/2025 4:59 PM EDT [facility] ALT 24 <=41 U/L 01/29/2025 4:59 PM EDT [facility] AST 42(H) <=40 U/L 01/29/2025 4:59 PM EDT [facility] Alk Phos 70 40 - 129 U/L 01/29/2025 4:59 PM EDT [facility] eGFR (CKD-EPIcr 2020) 66 >=60 mL/min/1.7 3 m2 01/29/2025 4:59 PM EDT [facility] Comment:Estimated GFR was ca lculated using the CKD-EPIcr (2020) equation refit without race. The equation is recommended by the National Kidney Foundation - [employer] Nephrology Task Force. Blood VENOUS BLOOD / Unknown Venipuncture / Unknown 01/29/2025 4:31 PM EDT 01/29/2025 4:34 PM EDT us Wanda Mary Bowersus CEMENT PAVER CHEMISTRY ORDERABLES Final Result Performing Organization Address [facility] de Phone Number [facility] [address] [place] [address] * ALCOHOL MEDICAL (01/29/2025 4:30 PM EDT) Alcohol Medical <10 <=10 mg/dL 4:46 PM EDT [facility] Comment: 50-100 mg/dL - [place], slowing of reflexes, impaired visual acuity > 100 mg/dL - Depression of DOCUMENT IMAGE TECHNICIAN > 400 mg/dL - Fatalities reported Blood VENOUS BLOOD / Unknown Venipuncture / Unknown 01/29/2025 4:30 PM EDT 01/29/2025 4:34 PM EDT us Wanda R Mangus CEMENT PAVER CHEMISTRY ORDERABLES Final Result Performing Organization Address [facility] de Phone Number [facility] [address] [place] [address] * (ABNORMAL) URINALYSIS REFLEX (01/29/2025 4:28 PM EDT) UA Color Yellow 01/29/2025 4:44 PM EDT [facility] UA Appear Clear Clear 01/29/2025 4:44 PM EDT [facility] UA Glucose Negative Negative mg/dL 01/29/2025 4:44 PM [facility] UA Ketones 1+ (15 mg/dL)(A) Negative mg/dL 01/29/2025 4:44 PM [facility] UA Blood Trace-Intac t(A) Negative 01/29/2025 4:44 PM [facility] UA pH 6.0 5.0 - 8.0 pH 01/29/2025 4:44 PM [facility] UA Protein >=300(A) Negative mg/dL 01/29/2025 4:44 PM [facility] UA Urobilinogen 1.0 <=1 mg/dL 4:44 PM [facility] UA Bili 01/29/2025 4:44 PM [facility] Comment:Unable to report. Ca nnot rule out interfering substances that may yield false positive results. Consider correlation with serum bilirubin result. UA Nitrite Negative Negative 01/29/2025 4:44 PM [facility] UA Leuk Est Negative Negative 01/29/2025 4:44 PM [facility] UA Spec Grav >=1.030 1.001 - 1.035 no units 01/29/2025 4:44 PM [facility] Comment:Reference range kalpesh d for random specimens only. UA WBC 1 0 - 4 /HPF 01/29/2025 4:44 PM [facility] UA RBC 2 0 - 3 /HPF 01/29/2025 4:44 PM [facility] UA Mucus 3+ /LPF 01/29/2025 4:44 PM [facility] UA Amorph 1+ /HPF 01/29/2025 4:44 PM [facility] UA Bacteria 1+(A) Negative /HPF 01/29/2025 4:44 PM [facility] UA Hyal Cast 15(H) 0 - 2 /LPF 01/29/2025 4:44 PM [facility] Urine STRUCTURE OF URINARY TRACT PROPER / Unknown 01/29/2025 4:28 PM EDT 01/29/2025 4:34 PM EDT us Wanda Liu CEMENT PAVER URINE ORDERABLES Final Resu lt [facility] [address] [place] [address] * (ABNORMAL) DRUG SCREEN RAPID PANEL, URINE (01/29/2025 4:28 PM EDT) Cannabinoid Rapid Presumptive Pos(A) Absent 01/29/2025 4:48 PM EDT [facility] Cocaine Rapid Absent Absent 01/29/2025 4:48 PM EDT [facility] Methamphetamine Rapid Absent Absent 01/29/2025 4:48 PM EDT [facility] Opiate Rapid Absent Absent 01/29/2025 4:48 PM EDT [facility] Amphetamine Rapid Absent Absent 025 4:48 PM EDT [facility] Benzodiazepines Rapid Absent Absent 01/29/2025 4:48 PM EDT [facility] Tricyclic Rapid Absent Absent 4:48 PM EDT [facility] Methadone Rapid Absent Absent 5 4:48 PM EDT [facility] Barbiturate Rapid Absent Absent 025 4:48 PM EDT [facility] Oxycodone Rapid Absent Absent 4:48 PM EDT [facility] BUPRENORPHINE RAPID Absent Absent 01/29/2025 4:48 PM EDT [facility] Urine STRUCTURE OF URINARY TRACT PROPER / Unknown 01/29/2025 4:28 PM EDT 01/29/2025 4:34 PM EDT Narrative [facility] - 01/29/2025 4:48 PM EDT [...] vaginal pool/amniotic fluid could cause erroneous results. Wanda Liu APRN URINE ORDERABLES Final Resu lt Performing Organization Address [facility] Co de Phone Number [facility] [address] [place] [address] * [id number] A/B (01/29/2025 4:28 PM EDT) CORONAVIRUS [id number] Not Detected Not Detected 01/29/2025 4:57 PM EDT [facility] Influenza A DNA Not Detected Not Detected 01/29/2025 4:57 PM EDT [facility] Influenza B DNA Not Detected Not Detected 01/29/2025 4:57 PM EDT [facility] Swab BOTH ANTERIOR NARES / Unknown 01/29/2025 4:28 PM EDT 01/29/2025 4:34 PM EDT Wanda Liu APRN MICROBIOLOGY - GENERAL ORDE RABLES Final Result Performing Organization Address [facility] de Phone Number [facility] [address] [place] [address] * EXTRA ARROYO URINE CX (01/29/2025 4:28 PM EDT) Urine STRUCTURE OF URINARY TRACT PROPER / Unknown 01/29/2025 4:28 PM EDT 01/29/2025 4:35 PM EDT Wanda Liu APRN MICROBIOLOGY - GENERAL BOBE RABGENESIS Final Result Performing Organization Address [facility] Co de Phone Number [facility] [address] [place] [address] from Last 3 Months Care Teams Sheet Metal Mechanic Relationship Specialty Start Date End Date Nonstaff, Referring PCP - General 01/27/25
--- OUTSIDE RECORDS SUMMARY | 2025-03-17 13:00 | XMS_ITS | Encounter Summary ---
Author Organization [facility] [address] Care Team Providers Care Intelligence Research Specialist Name Role Phone Nonstaff, Referring Primary Care Provider Lucho tatum Encounter Details Date Type Department Care Team (Latest Contact Info) Description 01/27/2025 Travel Social History Tobacco Use Types Packs/Day [...] 4:06 PM EDT Korina Mohr RN * [place] Suicide Severity Rating Scale (Q shift for [...] Stevens RN documented as of this encounter Plan of Treatment Not on file documented as of this encounter Visit Diagnoses Not on filedocumented in this encounter Care Teams Intelligence Research Specialist Relationship Specialty Start Date End Date Nonstaff, Referring PCP - General 01/27/25 documented as of this encounter
--- OUTSIDE RECORDS SUMMARY | 2025-03-17 13:00 | XMS_ITS | Encounter Summary ---
Author Organization [facility] [place] [address] Care Team Providers Care Flatlock Sewing Machine Operator Name Role Phone Nonstaff, Referring Primary Care Provider Lucho tatum Encounter Details Date Type Department Care Team (Latest Contact Info) Description 01/29/2025 Travel Social History Tobacco Use Types Packs/Day [...] 3:41 PM EDT Jada Patel RN * [place] Suicide Severity Rating Scale (Q shift for [...] Diagnoses Not on filedocumented in this encounter Additional Health Concerns Infection Onset Date Last Indicated Resolved Time R/O COVID-19 01/29/2025 01/29/2025 01/29/2025 4:57 PM EDT documented as of this encounter Care Teams Flatlock Sewing Machine Operator Relationship Specialty Start Date End Date Nonstaff, Referring PCP - General 01/27/25 documented as of this encounter
[2025-03-17 13:01] LABS: Bilirubin,Urine Negative (Negative); Color,Urine YELLOW (Yellow); Glucose,Urine (UA) Negative (Negative); Ketones,Urine Negative (Negative); Leukocyte Esterase,Urine Negative (Negative); Microscopic, Urine URINE MICROSCOPIC (MICROSCOPIC); PH,Urine 6.0 (5.0-8.5); Protein,Urine 1+ (Negative); Specific Gravity, Urine >= 1.030 (1.005-1.030); Urobilinogen,Urine 0.2 EU/dl (0.2)
[2025-03-17 13:05] LABS: Hematocrit 45.5 % (42.0-52.0); Hemoglobin 16.3 g/dL (14.1-18.0); Immature Granulocytes % 0.6 %; Mean Corpuscular HGB Conc 35.8 g/dL (31.8-35.4); Mean Corpuscular Hemoglobin 30.5 pg (27.0-31.2); Mean Corpuscular Volume 85.2 fl (80-94); Nucleated Red Blood Cells % 0 %; Platelet Count 300 K/mm3 (142-424); Red Blood Count 5.34 M/mm3 (4.60-6.20); Red Cell Distribution Width-SD 37.5 fL; White Blood Count 18.1 K/mm3 (4.8-10.8)
--- NOTE | 2025-03-17 13:11 | ECG_ITS ---
APPROVED REPORT Exam: Resting ECG HR:103 bpm ECG Measurements Heart Rate 103 AXES SC 124 P 73 QRSd 110 QRS 112 QT 344 T 71 QTc 404 Conclusion SINUS TACHYCARDIA INCOMPLETE RIGHT BUNDLE BRANCH BLOCK [90+ ms QRS DURATION, TERMINAL R IN V1/V2, 40+ ms S IN I/aVL/V4/V5/V6] POSSIBLE RIGHT VENTRICULAR HYPERTROPHY [SOME/ALL OF: PROMINENT R IN V1, LATE TRANSITION, RAD, HANK, SSS] ABNORMAL ECG Electronically signed by : ALFONSO HELMS, 03/19/2025 16:12:11
[2025-03-17] MEDS: ONDANSETRON 4MG/2ML VIAL 4 MG IV ×2 (13:12→19:46)
[2025-03-17] MEDS: 0.9 % SODIUM CHLORIDE 1000ML 1,000 ML 999 ML IV ×2 (13:12→14:01)
--- NOTE | 2025-03-17 13:17 | PC.NURSE ---
provider notified patient flags sepsis heart rate and wbc
[2025-03-17 13:21] LABS: Albumin Level 5.5 g/dl (3.5-5.0); Potassium 3.6 mmoL/L (3.5-5.1); Sodium 128 mmol/L (136-145)
[2025-03-17 13:23] LABS: Blood Urea Nitrogen 79 mg/dl (9-20); Creatinine Clearance Estimated 30 mL/min (50-200); Creatinine,Serum 2.60 mg/dl (0.66-1.25); Estimated Glomerular Filt Rate 29 ml/min (>60); GFR (African American) 35 ML/MIN (>60)
[2025-03-17 13:24] LABS: Alanine Aminotransferase 39 U/L (12-78); Alkaline Phosphatase 61 U/L (38-126); Aspartate Amino Transferase 41 U/L (17-59); Bilirubin,Total 5.9 mg/dl (0.2-1.3); Calcium 9.3 mg/dl (8.4-10.2); Carbon Dioxide 34 mmol/L (22.0-30.0); Chloride 73 mmol/L (98-107); Glucose 126 mg/dl (74-100); Lipase 95 U/L (23-300); Total Protein,Serum 9.9 g/dl (6.3-8.2)
[2025-03-17 13:25] LABS: Albumin/Globulin Ratio 1.3 (1.1-1.8); Anion Gap 24.6 mEq/L (5-15); Globulin 4.4 g/dL (1.3-3.2)
--- NOTE | 2025-03-17 13:25 | PC.NURSE ---
PIGMENT PUSHER notified of Chloride of 73.
[2025-03-17 13:27] LABS: Bacteria,Urine Trace /lpf; Hyaline Casts,Urine OCC #/lpf (0); Squamous Epithelial Cell,Urine Occasional #/hpf (0-5)
[2025-03-17 13:31] LABS: Benzodiazepines Screen,Urine Negative ng/ml (<200)
[2025-03-17 13:32] LABS: Amphetamine/Metha Screen,Urine Negative ng/ml (<1000); Barbiturates Screen,Urine Negative ng/ml (<200)
[2025-03-17 13:33] LABS: Methadone Screen,Urine Negative ng/ml (<300)
[2025-03-17 13:35] LABS: Opiate Screen,Urine Negative ng/ml (<300)
[2025-03-17 13:36] LABS: Phencyclidine Screen,Urine Negative ng/ml (<25)
--- NOTE | 2025-03-17 13:47 | CT_ITS ---
FINAL REPORT TECHNIQUE: Thin section axial images were obtained from the lung bases to the pubic symphysis without IV contrast. Coronal and sagittal reconstruction images were obtained from the axial data. Exam was performed using dose reduction technique. This study was performed with techniques to keep radiation doses as low as reasonably achievable (ALARA). Individualized dose reduction techniques using automated exposure control or adjustment of mA and/or kV according to the patient's size were employed. CLINICAL HISTORY: n/v COMPARISON: None FINDINGS: There are no renal or ureteral stones. There is no hydronephrosis or perinephric stranding. There is a right renal hypodense lesion, indeterminate. The gallbladder is present. The remaining unenhanced solid abdominal organs are unremarkable. There is no evidence of small bowel obstruction. The appendix is not visualized, however no secondary signs of appendicitis are seen. GI tract is without acute abnormality. There is no lymphadenopathy or ascites. There are multiple sclerotic lesions in the bony pelvis, favor bone islands. Otherwise, no acute osseous abnormality is identified. IMPRESSION: 1. No renal or ureteral stones. No hydronephrosis. 2. Right renal hypodense lesion, indeterminate. Reviewed, Interpreted and Dictated by Migdalia Jang MD Transcribed by Renee Chacon Authenticated and [facility]
--- NOTE | 2025-03-17 13:52 | PC.NURSE ---
fish processing supervisor contacted for bed.
[2025-03-17 13:55] LABS: Creatine Kinase 461 U/L (55-170)
[2025-03-17 13:57] LABS: Troponin I < 0.01 ng/ml (0.00-0.034)
[2025-03-17 14:15] LABS: RBC Morphology Normal; Total Cells Counted 100
--- NOTE | 2025-03-17 14:15 | PC.NURSE ---
report given [id number]
[2025-03-17] MEDS: SODIUM CHLORIDE 0.9% 25ML BAG 25 ML IV (14:54)
[2025-03-17] MEDS: PROMETHAZINE HCL 25MG/ML 1ML VIAL 25 MG IV (14:54)
--- NOTE | 2025-03-17 15:01 | P.HP_ITS ---
<Statement entered by Douglas Thomas MD - 03/17/25 20:12> Rounded on patient after nurse practitioner. Personally examined and interviewed patient. Agree with exam findings and care plan as documented. History of Present Illness *Admission Date: 03/17/25 *Reason for visit:: nausea and vomiting *History of present illness: Mr. Davis is a 30-year-old male who presented to the emergency department with persistent nausea and vomiting x 3 days. Patient has no significant past medical history. Upon arrival to the emergency department he states that he has been having episodes of intermittent vomiting and nausea, he states he has not been able to keep anything down including water for 3 days. He denies diarrhea, fevers, abdominal pain, chest pain. Upon emergency room workup patient was found to have acute kidney injury, BUN 79, creatinine 2.6 elevated white count at 18.1 with neutrophilic shift (likely reactive), hyponatremia at 128, hypercarbia of 34, elevated lactate at 3.6, elevated CK at 461. Patient continued to have nausea and inability to keep down any p.o. intake. CT abdomen/pelvis shows no renal or ureteral stones, no appendicitis, renal hypodense lesion, indeterminate. [facility] Disclaimer: The information contained in this section may have been updated after the patient was seen, as this information can be updated by other users. Social History (Updated 01/25/25 @ 18:47 by MARGARET Miles) Smoking Status: Current every day smoker alcohol intake: current current occupational status: other Travel in the last 8 weeks?: None Have you lived/traveled outside [place] in past 30 days?: No Contact w/someone who lives/traveled outside [place] past 30 days?: No Exposure to someone with infectious disease in past 14 days?: No Do you have a fever (greater than 100.4 F or 38 C)?: No Have you tested positive for COVID-19?: No Exposed to someone with COVID-19 in past 14 days?: No Do you have a sore throat?: No Do you have a cough?: No Do you have any weakness?: No Do you have any diarrhea?: No Are you experiencing any unusual bleeding?: No Do you have any muscle aches/pain?: No Do you have any abdominal pain?: No Are you experiencing loss of taste or smell?: No Review of Systems Constitutional Constitutional: Denies chills, Denies fever(s), Reports poor appetite, Reports lethargy and Reports weakness ENT Ears, Nose, Mouth, and Throat: Reports dry mouth, Denies sinus pain, Denies sinus pressure and Denies sore throat *Cardiovascular Cardiovascular: Denies chest pain and Denies dyspnea *Respiratory Respiratory: Denies chest congestion, Denies cough and Denies dyspnea *Gastrointestinal Gastrointestinal: Denies abdominal pain, Denies hematemesis, Denies loose stools, Reports nausea and Reports vomiting *Genitourinary Genitourinary: Denies dysuria *Neurologic Neurologic: Reports weakness Meds Home Medications and Allergies Home Medications ?Medication ?Instructions ?Recorded ?Confirmed ?Type No Known Home Medications 03/17/2503/03 History New Prescriptions to Start Prescriptions: Allergies Allergy/AdvReac Type Severity Reaction Status Date / Time No Known Allergies Allergy Verified 01/25/25 17:30 Exam Data for Last 24 hours Vital signs and Labs for Last 24 Hours: Temp Pulse Resp BP Pulse Ox O2 Del Method 98.2 F 86 20 139/92 H 97 Room Air 03/17/25 14:43 03/17/25 14:43 03/17/25 14:43 03/17/25 14:43 03/17/25 14:35 03/17/25 14:43 Laboratory Results - last 24 hr 03/17/25 12:55: Urine Color Yellow, Urine Appearance Clear, Urine pH 6.0, Ur Specific [place] >= 1.030, Urine Protein 1+ A, Urine Glucose (UA) Negative, Urine Ketones Negative, Urine Blood 2+ A, Urine Nitrate Negative, Urine Bilirubin Negative, Urine Urobilinogen 0.2, Ur Leukocyte Esterase Negative, Urine RBC 5-10, Urine WBC 3-5, Ur Squamous Epith Cells Occasional, Urine Bacteria Trace, Hyaline Casts Occ 03/17/25 13:00: WBC 18.1 H, RBC 5.34, Hgb 16.3, Hct 45.5, MCV 85.2, MCH 30.5, MCHC 35.8 H, RDW 12.1, Plt Count 300, MPV 12.3 H, Neut % (Auto) 64.8, Lymph % (Auto) 14.0, [place] % (Auto) 12.1 H, Eos % (Auto) 8.3, Baso % (Auto) 0.2, Neut # (Auto) 11.8 H, Lymph # (Auto) 2.5, [place] # (Auto) 2.2 H, Eos # (Auto) 1.5 H, Baso # (Auto) 0.0, Total Counted 100, Neutrophils % (Manual) 68, Lymphocytes % (Manual) 31, Monocytes % (Manual) 1 L, Platelet Estimate Normal, RBC Morphology Normal, Sodium 128 L, Potassium 3.6, Chloride 73 L, Carbon Dioxide 34 H, Anion Gap 24.6 H, BUN 79 H, Creatinine 2.60 H, Estimated Creat Clear 30, Estimated GFR 29 L, Est GFR ( Amer) 35 L, Glucose 126 H, Lactate 3.6 H, Calcium 9.3, Total Bilirubin 5.9 H, AST 41, ALT 39, Alkaline Phosphatase 61, Total Creatine Kinase 461 H, Troponin I < 0.01, Total Protein 9.9 H, Albumin 5.5 H, Globulin 4.4 H, Albumin/Globulin Ratio 1.3, Lipase 95, Urine Opiates Screen Negative, Urine Methadone Screen Negative, Ur Barbituates Screen Negative, Ur Phencyclidine Scrn Negative, Ur Amphetamines Screen Negative, U Benzodiazepines Scrn Negative, Urine Cocaine Screen Negative, U Marijuana (THC) Screen Negative I & O for Last 24 hours: Intake & Output 03/14/25 03/15/25 03/16/25 03/17/25 23:59 23:59 23:59 23:59 Intake Total 1000 / 1000 Balance 1000 / 1000 Weight 54.431 kg Constitutional Constitutional: mild distress, thin and cooperative *Routine HEENT Exam Head: Present normocephalic Eye: Present EOMI ENT: Present mucous membranes dry *Routine Neck Exam Neck: Present supple and full ROM; Absent JVD *Routine Respiratory Exam Respiratory: Present CTA bilaterally, normal respiratory effort and able to speak in complete sentences; Absent wheezes or crackles *Routine Cardiovascular Exam Cardiovascular: Present RRR, Normal S1 and Normal S2; Absent murmur *Routine Abdominal Exam Abdominal: Present soft; Absent tenderness or distended *Routine Rectal Exam Rectal:: deferred *Routine Genitalia Exam Genitalia:: deferred *Routine Extremities Exam Extremities: Present full ROM, pulses intact and normal capillary refill; Absent edema *Routine Skin Exam Skin: Present intact, dry and pallor; Absent rash *Routine Neurological Exam Neurological: Present alert, oriented X3, vision grossly intact, hearing grossly intact and normal speech Assessment and Plan *Assessment and plan (1) Acute kidney injury: Status: Acute Category: Medical Code(s): N17.9 - Acute kidney failure, unspecified (2) Intractable nausea and vomiting: Status: Acute Category: Medical Code(s): R11.2 - Nausea with vomiting, unspecified (3) Leukocytosis: Status: Acute Category: Medical Code(s): D72.829 - Elevated white blood cell count, unspecified Plan Mr. Davis is a 30-year-old male who presented to the emergency department with persistent nausea and vomiting x 3 days. Patient has no significant past medical history. Upon arrival to the emergency department he states that he has been having episodes of intermittent vomiting and nausea, he states he has not been able to keep anything down including water for 3 days. He denies diarrhea, fevers, abdominal pain, chest pain. Upon emergency room workup patient was found to have acute kidney injury, BUN 7 9, creatinine 2.6 elevated white count at 18.1 with neutrophilic shift (likely reactive), hyponatremia at 128, hypercarbia of 34, elevated lactate at 3.6, elevated CK at 461, and elevated bilirubin at 5.9. Patient continues to deny any abdominal pain, but continues to have nausea and inability to keep down any p.o. intake. CT abdomen/pelvis shows no renal or ureteral stones, no appendicitis, renal hypodense lesion, indeterminate. Hospital medicine was consulted for admission, I agreed to admit the patient for further management of his ADRIANO, leukocytosis, intractable nausea and vomiting. Plan of care as follows: #ADRIANO, present on admission #Intractable nausea and vomiting #Leukocytosis ? Patient received 2 L bolus in the ED, continuing hydration with NS at 125 mL/H. Patient appears hypovolemic. Clear liquid diet ordered, may advance as tolerated. Patient receiving multiple antiemetics, Zofran, Phenergan as needed. Patient denies diarrhea. Patient remains hemodynamically stable. ?Patient does have elevated white count of 18.1, likely reactive to nausea and vomiting. Will hold on antibiotic coverage at this time. ?CBC, CMP, magnesium level ordered for the a.m. Full code Ambulate as tolerated VTE?IPC's Clear liquid diet advance as tolerated
[2025-03-17 15:05] LABS: Hepatitis C Ab Qual. W/ RFX NEGATIVE (Negative)
[2025-03-17] MEDS: 0.9 % SODIUM CHLORIDE 1000ML 1,000 ML 125 ML IV (16:02)
[2025-03-17 17:13] LABS: Troponin I < 0.01 ng/ml (0.00-0.034)
[2025-03-17 17:16] LABS: Reflex Lactic Add Lactic Reflex
[2025-03-17 17:34] LABS: Lactic Acid Follow Up (RFLX 1) 1.5 mmol/L (0.7-2.1)
--- NOTE | 2025-03-17 20:00 | PC.NURSE ---
ICPS placed in patient room - patient ambulates frequently and doesn't want to put them on at this time.
[2025-03-17 20:50] LABS: Troponin I < 0.01 ng/ml (0.00-0.034)
[2025-03-18] VITALS: BP 139/89; PULSE 94; RESP 12; TEMP 37.1; O2SAT 99
[2025-03-18] MEDS: PROMETHAZINE HCL 25MG/ML 1ML VIAL 25 MG IV ×3 (00:31→22:30)
[2025-03-18] MEDS: SODIUM CHLORIDE 0.9% 25ML BAG 25 ML IV ×3 (00:32→22:30)
[2025-03-18] MEDS: 0.9 % SODIUM CHLORIDE 1000ML 1,000 ML 125 ML IV ×3 (00:32→20:09)
[2025-03-18 04:00] VITALS: BP 129/80; PULSE 88; RESP 14; TEMP 36.6; O2SAT 96; BMI 17.7
[2025-03-18] MEDS: ONDANSETRON 4MG/2ML VIAL 4 MG IV ×2 (06:13→17:43)
[2025-03-18 06:22] LABS: Hematocrit 36.0 % (42.0-52.0); Immature Granulocytes % 0.3 %; Mean Corpuscular HGB Conc 36.1 g/dL (31.8-35.4); Mean Corpuscular Hemoglobin 31.1 pg (27.0-31.2); Mean Corpuscular Volume 86.1 fl (80-94); Nucleated Red Blood Cells % 0 %; Platelet Count 175 K/mm3 (142-424); Red Blood Count 4.18 M/mm3 (4.60-6.20); Red Cell Distribution Width-SD 38.4 fL; White Blood Count 9.3 K/mm3 (4.8-10.8)
[2025-03-18 06:29] LABS: Hemoglobin 13.2 g/dL (14.1-18.0)
[2025-03-18 06:34] LABS: Albumin Level 4.1 g/dl (3.5-5.0); Chloride 93 mmol/L (98-107); Potassium 3.5 mmoL/L (3.5-5.1); Sodium 132 mmol/L (136-145)
[2025-03-18 06:36] LABS: Alanine Aminotransferase 21 U/L (12-78); Aspartate Amino Transferase 33 U/L (17-59); Blood Urea Nitrogen 46 mg/dl (9-20); Creatinine Clearance Estimated 47 mL/min (50-200); Creatinine,Serum 1.80 mg/dl (0.66-1.25); Estimated Glomerular Filt Rate 45 ml/min (>60); GFR (African American) 54 ML/MIN (>60)
[2025-03-18 06:37] LABS: Albumin/Globulin Ratio 1.6 (1.1-1.8); Alkaline Phosphatase 47 U/L (38-126); Anion Gap 12.5 mEq/L (5-15); Bilirubin,Total 4.8 mg/dl (0.2-1.3); Calcium 8.3 mg/dl (8.4-10.2); Carbon Dioxide 30 mmol/L (22.0-30.0); Globulin 2.5 g/dL (1.3-3.2); Glucose 100 mg/dl (74-100); Magnesium 2.6 mg/dl (1.6-2.3); Total Protein,Serum 6.6 g/dl (6.3-8.2)
[2025-03-18 08:00] VITALS: BP 143/93; PULSE 87; RESP 16; TEMP 36.7; O2SAT 98
[2025-03-18 14:20] LABS: Chloride 96 mmol/L (98-107)
[2025-03-18 14:21] LABS: Potassium 4.0 mmoL/L (3.5-5.1); Sodium 132 mmol/L (136-145)
[2025-03-18 14:23] LABS: Blood Urea Nitrogen 37 mg/dl (9-20); Creatinine Clearance Estimated 52 mL/min (50-200); Creatinine,Serum 1.60 mg/dl (0.66-1.25); Estimated Glomerular Filt Rate 51 ml/min (>60); GFR (African American) 62 ML/MIN (>60)
[2025-03-18 14:24] LABS: Anion Gap 11.0 mEq/L (5-15); Calcium 8.0 mg/dl (8.4-10.2); Carbon Dioxide 29 mmol/L (22.0-30.0); Glucose 95 mg/dl (74-100)
--- NOTE | 2025-03-18 14:47 | P.PN_ITS ---
<Statement entered by Douglas Thomas MD - 03/18/25 16:22> Rounded on patient after nurse practitioner. Personally examined and interviewed patient. Agree with exam findings and care plan as documented. Subjective *Date: 03/18/25 *Time: 14:47 Interval history: Patient continues to have nausea and vomiting. Unable to tolerate p.o. intake. Patient receiving IV hydration at 125 mL/H. Patient receiving antiemetics as needed. Patient remains afebrile, no abdominal pain, no diarrhea. Patient creatinine improved to 1.8. Continue to monitor. Medical Exam Vital signs and Labs for Last 24 Hours: Vital Signs Temp Pulse Resp BP Pulse Ox O2 Del Method O2 Flow Rate 03/18/25 13:00 Room Air 03/18/25 11:00 Room Air 03/18/25 09:00 Room Air 03/18/25 08:00 98.1 F 87 16 143/93 H 98 Room Air 03/18/25 07:45 Room Air 03/18/25 06:21 Room Air 03/18/25 05:00 Room Air 2 03/18/25 04:00 97.8 F 88 14 129/80 96 Room Air 03/18/25 03:00 Room Air 03/18/25 01:00 Room Air 03/18/25 00:00 98.8 F 94 H 12 139/89 99 Room Air 03/17/25 23:00 Room Air 03/17/25 21:00 Room Air 03/17/25 20:00 Room Air 03/17/25 20:00 98.3 F 91 H 14 140/93 H 99 Room Air 03/17/25 18:04 Room Air 03/17/25 16:05 Room Air 03/17/25 16:00 98.3 F 74 18 132/89 97 Room Air 03/17/25 15:00 Room Air Intake and Output 03/17/25 03/18/25 03/18/25 23:59 07:59 15:59 Intake Total 120 / 2120 1883.333 / 2880.000 996.667 / 2880.000 Output Total 0 / 0 Balance 120 / 2120 1883.333 / 2880.000 996.667 / 2880.000 Intake: Intake, Oral Amount 120 / 120 600 / 600 Intake, Total IV Amount 1883.333 / 2280.000 396.667 / 2280.000 0.9 % Sodium Chloride 1000ML 1, 1883.333 / 1883.333 000 ml @ 125 mls/hr IV .Q8H [facility] Rx#:[id number] KCl 10mEq/100ml 100 ml @ 100 396.667 / 396.667 mls/hr IV Q1H [facility] Rx#:[id number] Output: Output, Urine Amount 0 / 0 Other: Number of Unmeasured Voids 1 Weight 54.431 kg Patient Weight 03/18/25 23:59 Weight 54.431 kg Laboratory Results - last 24 hr 03/17/25 13:00: HCV Ab ARIANNA w/Rflx PCR Qn Negative, HIV Ag/Ab Combo Qual Negative 03/17/25 16:32: Lactate 1.5, Troponin I < 0.01 03/17/25 19:15: Troponin I < 0.01 03/18/25 05:33: WBC 9.3 D, RBC 4.18 L, Hgb 13.2 L D, Hct 36.0 L, MCV 86.1, MCH 31.1, MCHC 36.1 H, RDW 12.1, Plt Count 175 D, MPV 12.8 H, Neut % (Auto) 70.4, Lymph % (Auto) 16.1, [place] % (Auto) 13.0 H, Eos % (Auto) 0.2, Baso % (Auto) 0.0 L , Neut # (Auto) 6.6, Lymph # (Auto) 1.5, [place] # (Auto) 1.2 H, Eos # (Auto) 0.0, Baso # (Auto) 0.0, Sodium 132 L, Potassium 3.5, Chloride 93 L, Carbon Dioxide 30, Anion Gap 12.5, BUN 46 H D, Creatinine 1.80 H D, Estimated Creat Clear 47, Estimated GFR 45 L, Est GFR ( Amer) 54 L D, Glucose 100 D, Calcium 8.3 L , Magnesium 2.6 H, Total Bilirubin 4.8 H, AST 33, ALT 21 D, Alkaline Phosphatase 47, Total Protein 6.6 D, Albumin 4.1 D, Globulin 2.5, Albumin/Globulin Ratio 1.6 03/18/25 14:05: Sodium 132 L, Potassium 4.0, Chloride 96 L, Carbon Dioxide 29, Anion Gap 11.0, BUN 37 H, Creatinine 1.60 H, Estimated Creat Clear 52, Estimated GFR 51 L, Est GFR ( Amer) 62, Glucose 95, Calcium 8.0 L I & O for Labs for Last 24 Hours: Intake & Output 03/15/25 03/16/25 03/17/25 03/18/25 23:59 23:59 23:59 23:59 Intake Total 2119 2880.000 / 2880.000 Output Total 0 / 0 Balance 2119 2880.000 / 2880.000 Weight 54.431 kg 54.431 kg Microbiology Reports for the Last 24 Hours: Microbiology 03/17/25 13:37 Blood Blood Culture - Preliminary NO GROWTH AFTER 24 HOURS 03/17/25 13:30 Blood Blood Culture - Preliminary NO GROWTH AFTER 24 HOURS Constitutional: Present no acute distress, thin and cooperative Head: Present atraumatic Eyes: Present as per HPI ENT: Present normal exam Neck: Present normal inspection Respiratory: Present CTA bilaterally and normal respiratory effort; Absent wheezes or crackles Cardiac: Present Reg Rate and Rhythm and No Murmur GI: Present soft and normal bowel sounds; Absent distention or tenderness Rectal (male): Present deferred (male): Present deferred Extremities: Present normal inspection and full ROM Skin: Present intact, dry and warm; Absent erythema or rash Neuro: Present Grossly Intact, alert, awake, oriented x 3 and moves all e xtremities Assessment and Plan *Assessment and plan (1) Acute kidney injury: Status: Acute Category: Medical Code(s): N17.9 - Acute kidney failure, unspecified (2) Intractable nausea and vomiting: Status: Acute Category: Medical Code(s): R11.2 - Nausea with vomiting, unspecified (3) Leukocytosis: Status: Acute Category: Medical Code(s): D72.829 - Elevated white blood cell count, unspecified (4) Hypokalemia: Status: Acute Category: Medical Code(s): E87.6 - Hypokalemia Plan Mr. Davis is a 30-year-old male who presented to the emergency department with persistent nausea and vomiting x 3 days. Patient has no significant past medical history. Upon arrival to the emergency department he states that he has been having episodes of intermittent vomiting and nausea, he states he has not been able to keep anything down including water for 3 days. He denies diarrhea, fevers, abdominal pain, chest pain. Upon emergency room workup patient was found to have acute kidney injury, BUN 79, creatinine 2.6 elevated white count at 18.1 with neutrophilic shift (likely reactive), hyponatremia at 128, hypercarbia of 34, elevated lactate at 3.6, elevated CK at 461, and elevated bilirubin at 5.9. Patient continues to deny any abdominal pain, but continues to have nausea and inability to keep down any p.o. intake. CT abdomen/pelvis shows no renal or ureteral stones, no appendicitis, renal hypodense lesion, indeterminate. Hospital medicine was consulted for admission, I agreed to admit the patient for further management of his ADRIANO, leukocytosis, intractable nausea and vomiting. Plan of care as follows: #ADRIANO, present on admission #Intractable nausea and vomiting #Leukocytosis ? Patient received 2 L bolus in the ED, continuing hydration with NS at 125 mL/H. Patient continues to have intermittent nausea and vomiting. He has been unable to tolerate any p.o. intake, with multiple attempts. He is receiving Zofran and Phenergan as needed for nausea. Lactic originally 3.6, trending downward to 1.5. Total bilirubin trending downward from 5.9-4.8. ?Patient's initial creatinine on admission was 2.6, trending downward to 1.6. Will continue with fluids, continue to try to advance p.o. intake. Will discontinue fluids once p.o. intake as tolerated. ?On admission elevated white count of 18.1, likely reactive to nausea and vomiting. Will hold on antibiotic coverage at this time. Repeat today 9.3. ?CBC, CMP, magnesium level ordered for the a.m. #Hypokalemia ? Patient very slightly hypokalemic with potassium of 3.5, replaced via IV infusion. Repeat potassium 4.0. Full code Ambulate as tolerated VTE?IPC's Clear liquid diet advance as tolerated
[2025-03-18 16:00] VITALS: BP 131/71; PULSE 64; RESP 16; TEMP 36.6; O2SAT 99
--- NOTE | 2025-03-18 16:12 | PC.NURSE ---
Patient complaining of nausea after meals but able to keep liquids down and diet advanced to full liquid. VS stable and patient remained on room air.
[2025-03-18 20:00] VITALS: BP 138/75; PULSE 71; RESP 14; TEMP 37.4; O2SAT 99
[2025-03-19] VITALS: BP 132/78; PULSE 70; RESP 12; TEMP 36.8; O2SAT 98
[2025-03-19] MEDS: ONDANSETRON 4MG/2ML VIAL 4 MG IV (01:33)
[2025-03-19 04:00] VITALS: BP 113/73; PULSE 73; RESP 12; TEMP 36.8; O2SAT 99; BMI 17.7
--- NOTE | 2025-03-19 04:52 | PC.NURSE ---
Pt. is alert and orientated x 4. Pt. is on room air. Pt. c/o nausea and vomiting. Medicated per AUG . Meds help with the nausea and vomiting. Pt. able to tolerate clear liquids but had trouble with full liquids. Pt. denies any abdominal pain. IV fluids infusing. pt. up to bathroom independently. Pt. refused SCUD's for VTE. Pt. states he feels fine after nausea meds kick in. Pt. has not slept much this shift, but resting quietly in bed. No other c/'o's aside from the nausea and episodes of vomiting. Personal items and call galindo in reach. bed in low and locked position. Safety measures in place.
[2025-03-19 06:18] LABS: Hematocrit 34.0 % (42.0-52.0); Hemoglobin 12.0 g/dL (14.1-18.0); Immature Granulocytes % 0.3 %; Mean Corpuscular HGB Conc 35.3 g/dL (31.8-35.4); Mean Corpuscular Hemoglobin 31.2 pg (27.0-31.2); Mean Corpuscular Volume 88.3 fl (80-94); Nucleated Red Blood Cells % 0 %; Platelet Count 129 K/mm3 (142-424); Red Blood Count 3.85 M/mm3 (4.60-6.20); Red Cell Distribution Width-SD 38.5 fL; White Blood Count 6.7 K/mm3 (4.8-10.8)
[2025-03-19 06:39] LABS: Albumin Level 3.3 g/dl (3.5-5.0); Sodium 133 mmol/L (136-145)
[2025-03-19] MEDS: 0.9 % SODIUM CHLORIDE 1000ML 1,000 ML 125 ML IV (06:41)
[2025-03-19 06:42] LABS: Alkaline Phosphatase 45 U/L (38-126); Aspartate Amino Transferase 20 U/L (17-59); Bilirubin,Total 3.5 mg/dl (0.2-1.3); Blood Urea Nitrogen 29 mg/dl (9-20); Carbon Dioxide 28 mmol/L (22.0-30.0); Creatinine Clearance Estimated 60 mL/min (50-200); Creatinine,Serum 1.40 mg/dl (0.66-1.25); Estimated Glomerular Filt Rate 60 ml/min (>60); GFR (African American) 72 ML/MIN (>60)
[2025-03-19 06:56] LABS: Anion Gap 9.4 mEq/L (5-15); Chloride 99 mmol/L (98-107); Potassium 3.4 mmoL/L (3.5-5.1)
[2025-03-19 06:59] LABS: Alanine Aminotransferase 17 U/L (12-78); Albumin/Globulin Ratio 1.3 (1.1-1.8); Globulin 2.5 g/dL (1.3-3.2); Total Protein,Serum 5.8 g/dl (6.3-8.2)
[2025-03-19 07:00] LABS: Calcium 7.7 mg/dl (8.4-10.2); Glucose 90 mg/dl (74-100)
[2025-03-19 07:40] VITALS: BP 149/76; PULSE 86; RESP 14; TEMP 36.8; O2SAT 100
[2025-03-19 08:15] VITALS: O2SAT 100
--- NOTE | 2025-03-19 09:40 | P.DS_ITS ---
<Statement entered by Douglas Thomas MD - 03/19/25 11:10> Rounded on patient after nurse practitioner. Personally examined and interviewed patient. Agree with exam findings and care plan as documented. General Admission date:: 03/17/25 Discharge date: 03/19/25 HPI HPI HPI: Mr. Davis is a 30-year-old male who presented to the emergency department with persistent nausea and vomiting x 3 days. Patient has no significant past medical history. Upon arrival to the emergency department he states that he has been having episodes of intermittent vomiting and nausea, he states he has not been able to keep anything down including water for 3 days. He denies diarrhea, fevers, abdominal pain, chest pain. Upon emergency room workup patient was found to have acute kidney injury, BUN 79 , creatinine 2.6 elevated white count at 18.1 with neutrophilic shift (likely reactive), hyponatremia at 128, hypercarbia of 34, elevated lactate at 3.6, elevated CK at 461. Patient continued to have nausea and inability to keep down any p.o. intake. CT abdomen/pelvis shows no renal or ureteral stones, no appendicitis, renal hypodense lesion, indeterminate. Hospital Course Hospital Course Hospital Course: Mr. Davis is a 30-year-old male who presented to the emergency department with persistent nausea and vomiting x 3 days. Patient has no significant past medical history. Upon arrival to the emergency department he states that he has been having episodes of intermittent vomiting and nausea, he states he has not been able to keep anything down including water for 3 days. He denies diarrhea, fevers, abdominal pain, chest pain. Upon emergency room workup patient was found to have acute kidney injury, BUN 79, creatinine 2.6 elevated white count at 18.1 with neutrophilic shift (likely reactive), hyponatremia at 128, hypercarbia of 34, elevated lactate at 3.6, elevated CK at 461, and elevated bilirubin at 5.9. Patient continues to deny any abdominal pain, but continues to have nausea and inability to keep down any p.o. intake. CT abdomen/pelvis shows no renal or ureteral stones, no appendicitis, renal hypodense lesion, indeterminate. Hospital medicine was consulted for admission, I agreed to admit the patient for further management of his ADRIANO, leukocytosis, intractable nausea and vomiting. Plan of care as follows: #ADRIANO, present on admission #Intractable nausea and vomiting, resolved #Leukocytosis, resolved ? Patient received 2 L bolus in the ED, continuing hydration with NS at 125 mL/H overnight. Patient able to tolerate p.o. intake for dinner last night and for breakfast this morning. He is still having intermittent nausea, but has not had any vomiting. Denies abdominal pain type discharge. Discharged home on Zofran 4 mg every 6 hours as needed for nausea. ?Patient's initial creatinine on admission was 2.6, trending downward to 1.4. Discussed continuing increased p.o. intake at discharge. Repeat BMP Saturday. ?On admission elevated white count of 18.1, likely reactive to nausea and vomiting. Will hold on antibiotic coverage at this time. Repeat today 6.7. ?Patient does not have PCP and is not interested in being referred to 1 at this time. #Hypokalemia ? Patient very slightly hypokalemic with potassium of 3.4, replaced orally. Patient will have repeat BMP on Saturday. Total time spent on discharge 32 minutes in counseling, documentation, chart review, and direct care with patient. Exam Data for Last 24 hours Vital signs and Labs for Last 24 Hours: Temp Pulse Resp BP Pulse Ox O2 Del Method O2 Flow Rate 98.3 F 86 14 149/76 H 100 Room Air 2 03/19/25 07:40 03/19/25 07:40 03/19/25 07:40 03/19/25 07:40 03/19/25 07:40 03/19/25 07:40 03/18/25 05:00 Laboratory Results - last 24 hr 03/18/25 14:05: Sodium 132 L, Potassium 4.0, Chloride 96 L, Carbon Dioxide 29, Anion Gap 11.0, BUN 37 H, Creatinine 1.60 H, Estimated Creat Clear 52, Estimated GFR 51 L, Est GFR ( Amer) 62, Glucose 95, Calcium 8.0 L 03/19/25 05:23: WBC 6.7 D, RBC 3.85 L, Hgb 12.0 L, Hct 34.0 L, MCV 88.3, MCH 31.2, MCHC 35.3, RDW 11.9, Plt Count 129 L D, MPV 12.8 H, Neut % (Auto) 56.8, Lymph % (Auto) 29.4, Stephens % (Auto) 11.2 H, Eos % (Auto) 2.2, Baso % (Auto) 0.1, Neut # (Auto) 3.8, Lymph # (Auto) 2.0, Stephens # (Auto) 0.8, Eos # (Auto) 0.2, Baso # (Auto) 0.0, Sodium 133 L, Potassium 3.4 L, Chloride 99, Carbon Dioxide 28, Anion Gap 9.4, BUN 29 H, Creatinine 1.40 H, Estimated Creat Clear 60, Estimated GFR 60, Est GFR ( Amer) 72, Glucose 90, Calcium 7.7 L, Total Bilirubin 3.5 H, AST 20 D, ALT 17, Alkaline Phosphatase 45, Total Protein 5.8 L, Albumin 3.3 L D, Globulin 2.5, Albumin/Globulin Ratio 1.3 I & O for Last 24 hours: Intake & Output 03/16/25 03/17/25 03/18/25 03/19/25 23:59 23:59 23:59 23:59 Intake Total 2119 / 2119 4120.000 / 4345.000 1705 / 1705 Output Total 0 / 0 0 / 0 Balance 2119 / 2119 4120.000 / 4345.000 1705 / 1705 Weight 54.431 kg 54.431 kg 54.431 kg Microbiology Reports for the Last 24 Hours: Microbiology 03/17/25 13:37 Blood Blood Culture - Preliminary NO GROWTH AFTER 24 HOURS 03/17/25 13:30 Blood Blood Culture - Preliminary NO GROWTH AFTER 24 HOURS Constitutional Constitutional: no acute distress, thin and cooperative *Routine HEENT Exam Head: Present normocephalic Eye: Present EOMI and PERRL ENT: Present mucous membranes moist *Routine Neck Exam Neck: Present supple; Absent lymphadenopathy *Routine Respiratory Exam Respiratory: Present CTA bilaterally, normal respiratory effort, able to speak in complete sentences and symmetric chest movement; Absent wheezes or crackles *Routine Cardiovascular Exam Cardiovascular: Present RRR; Absent murmur *Routine Abdominal Exam Abdominal: Present soft and normoactive bowel sounds; Absent tenderness *Routine Rectal Exam Patient deferred: visual exam *Routine Exam Patient deferred: penile exam *Routine Extremities Exam Extremities: Absent cyanosis, clubbing or edema *Routine Skin Exam Skin: Present intact, dry and warm; Absent rash *Routine Neurological Exam Neurological: Present alert, oriented X3, vision grossly intact, hearing grossly intact and normal speech Results Data Completed and Pending Labs on day of discharge: Labs from last 24 hours 03/19/25 03/18/25 05:23 14:05 WBC 6.7 D RBC 3.85 L Hgb 12.0 L Hct 34.0 L MCV 88.3 MCH 31.2 MCHC 35.3 RDW 11.9 Plt Count 129 L D MPV 12.8 H Neut % (Auto) 56.8 Lymph % (Auto) 29.4 Stephens % (Auto) 11.2 H Eos % (Auto) 2.2 Baso % (Auto) 0.1 Neut # (Auto) 3.8 Lymph # (Auto) 2.0 Stephens # (Auto) 0.8 Eos # (Auto) 0.2 Baso # (Auto) 0.0 Sodium 133 L 132 L Potassium 3.4 L 4.0 Chloride 99 96 L Carbon Dioxide 28 29 Anion Gap 9.4 11.0 BUN 29 H 37 H Creatinine 1.40 H 1.60 H Estimated Creat Clear 60 52 Estimated GFR 60 51 L Est GFR ( Amer) 72 62 Glucose 90 95 Calcium 7.7 L 8.0 L Total Bilirubin 3.5 H AST 20 D ALT 17 Alkaline Phosphatase 45 Total Protein 5.8 L Albumin 3.3 L D Globulin 2.5 Albumin/Globulin Ratio 1.3 Preliminary micro results at discharge 03/17/25 13:37 Blood Culture - Preliminary Blood NO GROWTH AFTER 24 HOURS 03/17/25 13:30 Blood Culture - Preliminary Blood NO GROWTH AFTER 24 HOURS DS: Diagnosis Discharge Diagnosis (1) Acute kidney injury: Status: Acute Code(s): N17.9 - Acute kidney failure, unspecified (2) Intractable nausea and vomiting: Status: Acute Code(s): R11.2 - Nausea with vomiting, unspecified (3) Leukocytosis: Status: Acute Code(s): D72.829 - Elevated white blood cell count, unspecified (4) Hypokalemia: Status: Acute Code(s): E87.6 - Hypokalemia Meds Home Medications and Allergies Home Medications ?Medication ?Instructions ?Recorded ?Confirmed ?Type ondansetron 4 mg disintegrating 4 mg PO Q6H PRN nausea and 03/19/25 Rx tablet vomiting #20 tabs New Prescriptions to Start Prescriptions: ondansetron [place],Ynes Allergies Allergy/AdvReac Type Severity Reaction Status Date / Time No Known Allergies Allergy Verified 01/25/25 17:30 Discharge Plan Disposition Patient Disposition: Home, Self-Care Condition: Fair Discharge Order Discharge Orders: Discharge Order (Routine); Ordered 03/19/25 Ordered By: Ynes Stern Follow up Plan Prescriptions/Medication Reconciliation: New ondansetron 4 mg tablet,disintegrating 4 mg PO Q6H PRN (Reason: nausea and vomiting) Qty: 20 0RF Other Ambulatory Orders: Basic Metabolic Panel (Routine) Timeframe: [id number] Facility: [facility] - Location: Laboratory Ordered By: Ynes Stern Problem Reconciliation Problems Reviewed?: Yes Patient Discharge Instructions ACTIVITY: Continue current activity DIET: advance to your usual diet Patient Instructions: DI for Nausea in Adults, DI for Vomiting in Adults, DI for Leukocytosis Print Language: [place]ar[place] Providers Primary Care Provider: Provider,Referral Admit Provider: Douglas Thomas Attending Provider: Douglas Thomas
--- NOTE | 2025-03-22 10:35 | SW/DCPLANNER ---
Spoke with patient's mom on the phone. patient's mom stated that he is doing good. Patient's mom stated that he was able to get his new medicine picked up from the pharmacy. Patient stated that she has no concerns or questions at this time. Sy Colin
== END 2025-03-19 11:54 | disposition home or self-care (01) | DRG 683 ==
LOC: ER 13:52 → 2ND 14:12
PROVIDERS: Nurse Practitioner Family; Admitting Provider Internal Medicine Adolescent Medicine; Emergency Provider Student in an Organized Health Care Education/Training Program; Visit Provider Internal Medicine Adolescent Medicine
DX: N17.9 Acute kidney failure, unspecified (principal); E87.1 Hypo-osmolality and hyponatremia; E87.6 Hypokalemia; F17.200 Nicotine dependence, unspecified, uncomplicated; E86.1 Hypovolemia; D72.829 Elevated white blood cell count, unspecified; R11.2 Nausea with vomiting, unspecified
CPT/HCPCS: 36415; 74176; 80048; 80053; 80307; 81001; 82550; 83605; 83690; 83735; 84484; 85007; 85025; 86803; 87040; 87389; 93005; 99284; J2405; J2550; J3480; J7030

== ENCOUNTER 2025-05-01 14:26 | Emergency (ER) | payer SELFPAY ==
[2025-05-01 14:28] VITALS: BP 163/93; PULSE 96; RESP 20; TEMP 36.8; O2SAT 99; BMI 17.7
--- NOTE | 2025-05-01 14:34 | XR_ITS ---
PROCEDURE INFORMATION: Exam: XR Left Knee Exam date and time: 05/01/2025 2:32 PM Age: 30 years old Clinical indication: Pain; Knee; Left; Additional info: Possible injury, fell at concert TECHNIQUE: Imaging protocol: Radiologic exam of the left knee. Views: 3 views. COMPARISON: CR XR KNEE LT 3V 05/01/2025 2:32 PM FINDINGS: Bones/joints: Lucency in the proximal tibial metaphysis consistent with essentially nondisplaced fracture.. Mild suprapatellar joint effusion Soft tissues: Soft tissue swelling of the knee IMPRESSION: Lucency in the proximal tibial metaphysis consistent with essentially nondisplaced fracture..
--- OUTSIDE RECORDS SUMMARY | 2025-05-01 14:38 | XMS_ITS | Clinical Summary ---
Author Organization [facility] Address [address] [place] [address] Phone Care Team Providers Care Operations Expert Name Role Phone Nonstaff, Referring Primary Care Provider Lucho tatum Allergies No known active allergies Medications omeprazole (PRILOSEC) 20 mg Oral Capsule, Delayed Release(E.C.) Take 1 Capsule by mouth every morning (before breakfast). 30 Capsule Active Additional Information Patient not taking.Reason: Pt electing to not take the medication, Reported on 02/03/2025 Active Problems Problem Noted Date Diagnosed Date Irritability and anger 12/20/2011 Behavioral disorder 12/20/2011 ADHD (attention deficit hyperactivity disorder) 12/20/2011 Encounters Date Type Department Care Team Description 02/03/2025 3:15 PM EDT - 02/03/2025 3:31 PM EDT Emergency [facility] [address] [place] [address] Discharge Disposition: Left Without Being Seen 02/03/2025 Travel 01/29/2025 4:01 PM EDT - 01/29/2025 7:25 PM EDT Emergency [facility] [address] [place] [address] Justin Barragan MD Cannabinoid hyperemesis syndrome (Primary Dx) Discharge Disposition: Home or Self Care 01/29/2025 Travel from Last 3 Months Medical History [...] W/REFLEX TO CULTURE STAT 4:28 PM EDT [id number] A/B Routine 01/29/2025 4:2 8 PM EDT EXTRA ARROYO URINE CX STAT 01/29/2025 4 :28 PM EDT from Last 3 Months Results * (ABNORMAL) BASIC METABOLIC PANEL (01/29/2025 6:25 PM EDT) Sodium 134(L) 136 - 145 mmol/L 01/29/2025 6:55 PM EDT [facility] Potassium 3.6 3.5 - 5.0 mmol/L 01/29/2025 6:55 PM EDT [facility] Chloride 93(L) 98 - 107 mmol/L 01/29/2025 6:55 PM EDT [facility] Total CO2 26 22 - 29 mmol/L 01/29/2025 6:55 PM EDT [facility] Anion Gap 15 7 - 16 mmol/L 01/29/2025 6:55 PM EDT [facility] Calcium 8.3(L) 8.6 - 10.4 mg/dL 01/29/2025 6:55 PM EDT [facility] Glucose Lvl 100(H) 70 - 99 mg/dL 01/29/2025 6:55 PM EDT [facility] BUN 28(H) 6 - 20 mg/dL 01/29/2025 6:55 PM EDT [facility] Creatinine 1.28 0.67 - 1.30 mg/dL 01/29/2025 6:55 PM EDT [facility] eGFR (CKD-EPIcr 2020) 78 >=60 mL/min/1.7 3 m2 01/29/2025 6:55 PM EDT [facility] Comment:Estimated GFR was ca lculated using the CKD-EPIcr (2020) equation refit without race. The equation is recommended by the National Kidney Foundation - [place] [employer] Nephrology Task Force. Blood VENOUS BLOOD / Unknown Venipuncture / Unknown 01/29/2025 6:25 PM EDT 01/29/2025 6:27 PM EDT us Wanda Liu LITIGATION ATTORNEY CHEMISTRY ORDERABLES Final Result [facility] [address] [place], [place] [id number] * CT ABD PEL ED FAST W [...] of the ordering clinician. us Wanda Liu LITIGATION ATTORNEY IMG CT ORDERABLES Final Res ult * (ABNORMAL) CBC WITH DIFF (01/29/2025 4:31 PM EDT) WBC 16.0(H) 3.7 - 10.3 x10(3)/mcL 01/29/2025 4:38 PM EDT [facility] RBC 5.27 4.60 - 6.10 x10(6)/mcL 01/29/2025 4:38 PM EDT [facility] Hgb 15.8 13.7 - 17.5 g/dL 01/29/2025 4:38 PM EDT [facility] Hct 45.3 40.0 - 51.0 % 01/29/2025 4:38 PM EDT [facility] MCV 86.0 80.0 - 100.0 fL 01/29/2025 4:38 PM EDT [facility] MCH 30.0 26.0 - 34.0 pg 01/29/2025 4:38 PM EDT [facility] MCHC 34.9 30.7 - 35.5 g/dL 01/29/2025 4:38 PM EDT [facility] RDW 12.1 <=14.9 % 01/29/2025 4:38 PM EDT [facility] Platelet 284 155 - 369 x10(3)/mcL 01/29/2025 4:38 PM EDT [facility] MPV 11.6 8.8 - 12.5 fL 01/29/2025 4:38 PM EDT [facility] Neut Percent 75.5 % 01/29/2025 4:38 PM EDT [facility] Comment:Neutrophils equals s egs plus bands Imm Gran% 0.3 % 01/29/2025 4:38 PM EDT [facility] Comment:Automated count of m etamyelocytes, myelocytes and promyelocytes. Lymph Percent 12.7 % 01/29/2025 4:38 PM EDT [facility] Kings Percent 11.3 % 01/29/2025 4:38 PM EDT [facility] Eos Percent 0.1 % 01/29/2025 4:38 PM EDT [facility] Baso Percent 0.1 % 01/29/2025 4:38 PM EDT [facility] Neut # 12.1(H) 1.6 - 6.1 x10(3)/[facility] 01/29/2025 4:38 PM EDT [facility] Comment:Neutrophils equals s egs plus bands IMMGRAN# 0.1 0.0 - 0.1 x10(3)/[facility] 01/29/2025 4:38 PM EDT [facility] Comment:Automated count of m etamyelocytes, myelocytes and promyelocytes. An absolute IG <0.1 is reported as 0.0. Lymph # 2.0 1.2 - 3.9 x10(3)/[facility] 01/29/2025 4:38 PM EDT [facility] Kings # 1.8(H) 0.3 - 0.9 x10(3)/[facility] 01/29/2025 4:38 PM EDT [facility] Eos# 0.0 0.0 - 0.5 x10(3)/[facility] 01/29/2025 4:38 PM EDT [facility] Baso # 0.0 0.0 - 0.1 x10(3)/[facility] 01/29/2025 4:38 PM EDT [facility] Blood VENOUS BLOOD / Unknown Venipuncture / Unknown 01/29/2025 4:31 PM EDT 01/29/2025 4:34 PM EDT us Wanda Liu LITIGATION ATTORNEY HEMATOLOGY ORDERABLES Final Result [facility] [address] [place] [address] * LIPASE LEVEL (01/29/2025 4:31 PM EDT) Lipase Lvl 19 13 - 60 U/L 01/29/2025 4:52 PM EDT [facility] Blood VENOUS BLOOD / Unknown Venipuncture / Unknown 01/29/2025 4:31 PM EDT 01/29/2025 4:34 PM EDT Wanda R Mangus LITIGATION ATTORNEY CHEMISTRY ORDERABLES Final Result Performing Organization Address City/[facility]/ZIP Co de Phone Number [facility] [address] [place] [address] * LACTIC ACID (01/29/2025 4:31 PM EDT) Pathologist [facility] Lactic Acid 1.9 0.5 - 1.9 mmol/L 01/29/2025 4:48 PM EDT [facility] Blood VENOUS BLOOD / Unknown Venipuncture / Unknown 01/29/2025 4:31 PM EDT 01/29/2025 4:34 PM EDT Wanda Mary Mangus LITIGATION ATTORNEY CHEMISTRY ORDERABLES Final Result Performing Organization Address [facility] Co de Phone Number [facility] [address] [place], [place] [phone] * (ABNORMAL) COMPREHENSIVE METABOLIC PANEL (01/29/2025 4:31 PM EDT) Pathologist [facility] Sodium 131(L) 136 - 145 mmol/L 01/29/2025 4:59 PM EDT [facility] Potassium 3.5 3.5 - 5.0 mmol/L 01/29/2025 4:59 PM EDT [facility] Chloride 85(L) 98 - 107 mmol/L 01/29/2025 4:59 PM EDT [facility] Total CO2 25 22 - 29 mmol/L 01/29/2025 4:59 PM EDT [facility] Anion Gap 21(H) 7 - 16 mmol/L 01/29/2025 4:59 PM EDT [facility] Calcium 10.9(H) 8.6 - 10.4 mg/dL 01/29/2025 4:59 PM EDT [facility] Glucose Lvl 115(H) 70 - 99 mg/dL 01/29/2025 4:59 PM EDT [facility] BUN 34(H) 6 - 20 mg/dL 01/29/2025 4:59 PM EDT [facility] Creatinine 1.47(H) 0.67 - 1.30 mg/dL 01/29/2025 4:59 PM EDT [facility] Albumin 5.7(H) 3.5 - 5.2 gm/dL 01/29/2025 4:59 PM EDT [facility] Total Protein 9.1(H) 6.4 - 8.3 gm/dL 01/29/2025 4:59 PM EDT [facility] Bili Total 3.3(H) 0.2 - 1.4 mg/dL 01/29/2025 4:59 PM EDT [facility] ALT 24 <=41 U/L 01/29/2025 4:59 PM EDT [facility] AST 42(H) <=40 U/L 01/29/2025 4:59 PM EDT [facility] Alk Phos 70 40 - 129 U/L 01/29/2025 4:59 PM EDT [facility] eGFR (CKD-EPIcr 2020) 66 >=60 mL/min/1.7 3 m2 01/29/2025 4:59 PM EDT [facility] Comment:Estimated GFR was ca lculated using the CKD-EPIcr (2020) equation refit without race. The equation is recommended by the National Kidney Foundation - [place] [employer] of Nephrology Task Force. Blood VENOUS BLOOD / Unknown Venipuncture / Unknown 01/29/2025 4:31 PM EDT 01/29/2025 4:34 PM EDT us Wanda Liu LITIGATION ATTORNEY CHEMISTRY ORDERABLES Final Result Performing Organization Address City/State/[facility] Co de Phone Number [facility] [address], [place] [phone] * ALCOHOL MEDICAL (01/29/2025 4:30 PM EDT) Alcohol Medical <10 <=10 mg/dL 4:46 PM EDT [facility] Comment: 50-100 mg/dL - [place]ushing, slowing of reflexes, impaired visual acuity > 100 mg/dL - Depression of [employer]ING [employer] > 400 mg/dL - Fatalities reported Blood VENOUS BLOOD / Unknown Venipuncture / Unknown 01/29/2025 4:30 PM EDT 01/29/2025 4:34 PM EDT us Wanda Hernandez Rboinson LITIGATION ATTORNEY CHEMISTRY ORDERABLES Final Result [facility] [address] [place] [address] * (ABNORMAL) URINALYSIS REFLEX (01/29/2025 4:28 PM EDT) UA Color Yellow 01/29/2025 4:44 PM EDT [facility] UA Appear Clear Clear 01/29/2025 4:44 PM EDT [facility] UA Glucose Negative Negative mg/dL 01/29/2025 4:44 PM EDT [facility] UA Ketones 1+ (15 mg/dL)(A) Negative mg/dL 01/29/2025 4:44 PM EDT [facility] UA Blood Trace-Intac t(A) Negative 01/29/2025 4:44 PM EDT [facility] UA pH 6.0 5.0 - 8.0 pH 01/29/2025 4:44 PM EDT [facility] UA Protein >=300(A) Negative mg/dL 01/29/2025 4:44 PM EDT [facility] UA Urobilinogen 1.0 <=1 mg/dL 4:44 PM EDT [facility] UA Bili 01/29/2025 4:44 PM EDT [facility] Comment:Unable to report. Ca nnot rule out interfering substances that may yield false positive results. Consider correlation with serum bilirubin result. UA Nitrite Negative Negative 01/29/2025 4:44 PM EDT [facility] UA Leuk Est Negative Negative 01/29/2025 4:44 PM EDT [facility] UA Spec Grav >=1.030 1.001 - 1.035 no units 01/29/2025 4:44 PM EDT [facility] Comment:Reference range kalpesh d for random specimens only. UA WBC 1 0 - 4 /HPF 01/29/2025 4:44 PM EDT [facility] UA RBC 2 0 - 3 /HPF 01/29/2025 4:44 PM EDT [facility] UA Mucus 3+ /LPF 01/29/2025 4:44 PM EDT [facility] UA Amorph 1+ /HPF 01/29/2025 4:44 PM EDT [facility] UA Bacteria 1+(A) Negative /HPF 01/29/2025 4:44 PM EDT [facility] UA Hyal Cast 15(H) 0 - 2 /LPF 01/29/2025 4:44 PM EDT [facility] Urine STRUCTURE OF URINARY TRACT PROPER / Unknown 01/29/2025 4:28 PM EDT 01/29/2025 4:34 PM EDT us Wanda Liu LITIGATION ATTORNEY URINE ORDERABLES Final Resu lt [facility] [address] [place] [address] * (ABNORMAL) DRUG SCREEN RAPID PANEL, URINE (01/29/2025 4:28 PM EDT) Cannabinoid Rapid Presumptive Pos(A) Absent 01/29/2025 4:48 PM EDT [facility] Cocaine Rapid Absent Absent 01/29/2025 4:48 PM EDT [facility] Methamphetamine Rapid Absent Absent 01/29/2025 4:48 PM EDT [facility] Opiate Rapid Absent Absent 01/29/2025 4:48 PM EDT [facility] Amphetamine Rapid Absent Absent 025 4:48 PM EDT [facility] Benzodiazepines Rapid Absent Absent 01/29/2025 4:48 PM EDT [facility] Tricyclic Rapid Absent Absent 5 4:48 PM EDT [facility] Methadone Rapid Absent Absent 5 4:48 PM EDT [facility] Barbiturate Rapid Absent Absent 025 4:48 PM EDT [facility] Oxycodone Rapid Absent Absent 5 4:48 PM EDT [facility] BUPRENORPHINE RAPID Absent Absent 01/29/2025 4:48 PM EDT [facility] Urine STRUCTURE OF URINARY TRACT PROPER / Unknown 01/29/2025 4:28 PM EDT 01/29/2025 4:34 PM EDT Narrative [facility] - 01/29/2025 4:48 PM [...] ORDERABLES Final Resu lt Performing Organization Address [facility]/ZIP Co de Phone Number [facility] [address] [place] [address] * [id number] A/B (01/29/2025 4:28 PM EDT) CORONAVIRUS [id number] Not Detected Not Detected 01/29/2025 4:57 PM EDT [facility] Influenza A DNA Not Detected Not Detected 01/29/2025 4:57 PM EDT [facility] Influenza B DNA Not Detected Not Detected 01/29/2025 4:57 PM EDT [facility] Swab BOTH ANTERIOR NARES / Unknown 01/29/2025 4:28 PM EDT 01/29/2025 4:34 PM EDT Wanda Liu APRN MICROBIOLOGY - GENERAL ORDE RABLES Final Result Performing Organization Address [facility] Co de Phone Number [facility] [address] [place] [address] * EXTRA ARROYO URINE CX (01/29/2025 4:28 PM EDT) Urine STRUCTURE OF URINARY TRACT PROPER / Unknown 01/29/2025 4:28 PM EDT 01/29/2025 4:35 PM EDT us Wanda Liu APRN MICROBIOLOGY - GENERAL JUAN C SILVA Final Result [facility] [address] [place] [address] from Last 3 Months Care Teams Operations Expert Relationship Specialty Start Date End Date Nonstaff, Referring PCP - General 01/27/25
--- OUTSIDE RECORDS SUMMARY | 2025-05-01 14:38 | XMS_ITS | Clinical Summary ---
Author Organization [facility] Address [address] [place] [address] Care Team Providers Care Breaker Table Worker Name Role Phone Brittni Cuevas MD Primary Care Provider [phone] Source Comments [facility] is fully rolled out with thefollowing exceptions:[facility]ations methylphenidate (CONCERTA) 54 MG extended release [...] VACCINE (#1) 02/01/2025 COVID-19 Vaccine (1 - 2024-2 6 season) 2025 HIB IMMUNIZATION Aged Out No [...] to complete this topic Insurance Care Teams Breaker Table Worker Relationship Specialty Start Date End Date Brittni Cuevas MD PCP - General External Medicine 09/25/10
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
--- NOTE | 2025-05-01 14:51 | CT_ITS ---
PROCEDURE INFORMATION: Exam: CT Left Lower Extremity Without Contrast, Knee Exam date and time: 05/01/2025 3:05 PM Age: 30 years old Clinical indication: Injury or trauma; Fall; Other: Pain; Additional info: F/u abnormal knee XR, inability to bear weight TECHNIQUE: Imaging protocol: CT of the left lower extremity without contrast was performed. Exam focused on the knee. Radiation optimization: All CT scans at this facility use at least one of these dose optimization techniques: automated exposure control; mA and/or kV adjustment per patient size (includes targeted exams where dose is matched to clinical indication); or iterative reconstruction. COMPARISON: CR Knee L 05/01/2025 2:32 PM FINDINGS: Bones/joints: Lucency in the posterior aspect of the tibia consistent with minimally displaced fracture. (Series 4, image [id number]. Soft tissues: Soft tissue swelling of the proximal lower leg IMPRESSION: Lucency in the posterior aspect of the tibia consistent with minimally displaced fracture. (Series 4, image [id number].
--- NOTE | 2025-05-01 15:22 | PC.NURSE ---
was called for a possible transfer per Dr. Hidalgo. Images have also been powershared.
--- NOTE | 2025-05-01 16:04 | PC.NURSE ---
called report to gilson jett rn at
[2025-05-01 16:21] VITALS: BP 140/70; PULSE 80; RESP 20; TEMP 36.8; O2SAT 98
== END 2025-05-01 16:24 | disposition short-term general hospital (02) ==
PROVIDERS: Emergency Provider Student in an Organized Health Care Education/Training Program
DX: S82.142A Displaced bicondylar fracture of left tibia, initial encounter for closed fracture (principal); W50.0XXA Accidental hit or strike by another person, initial encounter
CPT/HCPCS: 73562; 73700; 99284; 99285